=== PATIENT | female | born 1980 | race Caucasian/White ===

== ENCOUNTER 2016-05-19 02:01 | Emergency (ER) | payer MEDICAID ==
[~2016-05-19] VITALS: Ht 154.9 cm; Wt 77.1 kg
[~2016-05-19 02:01] MED LIST: HYDR-1421; PROM25TA5 PO
[2016-05-19 02:46] LABS: Basophils # (auto) 0.1 uL; Basophils % (auto) 0.6 % (0.0-2.0); Eosinophils # (auto) 0.4 uL; Eosinophils % (auto) 3.2 % (0.0-7.0); Hematocrit 46.7 % (36.0-46.0); Hemoglobin 15.8 g/dL (12.2-16.2); Lymphocytes # (auto) 2.7 uL; Lymphocytes % (auto) 22.8 % (10.0-50.0); Mean Corpuscular Hemoglobin 29.3 pg (28.0-32.0); Mean Corpuscular Hgb Conc. 33.8 g/dL (32.0-36.0); Mean Corpuscular Volume 86.7 fL (80.0-100.0); Mean Platelet Volume 8.2 fL (7.4-10.4); Monocytes # (auto) 0.7 uL; Monocytes % (auto) 5.7 % (0.0-12.0); Neutrophils # (auto) 8.1 uL; Neutrophils % (auto) 67.7 % (37.0-80.0); Platelet Count (auto) 424 10^3/uL (140-450); Red Cell Distribution Width 12.6 % (11.6-16.0); White Blood Cell 11.9 10^3/uL (4.4-10.8)
[2016-05-19 03:18] LABS: BUN/Creatinine Ratio 10.3; Bilirubin, Total 0.4 mg/dL (0.2-1.0); Calcium 9.1 mg/dL (8.5-10.1); Magnesium 2.5 mg/dL (1.6-2.6); Potassium 3.6 mmol/L (3.5-5.1); Total Protein 8.6 g/dL (6.4-8.2)
[2016-05-19 07:08] LABS: Urine Bilirubin Negative (Negative); Urine Blood 2+ /uL (Negative); Urine Color Yellow (Yellow); Urine Glucose Normal (Normal); Urine Ketone Negative (Negative); Urine Mucus FEW (None Seen); Urine Nitrite Negative (Negative); Urine RBC 12 /hpf (0 - 4); Urine Squamous Epithelial Cell FEW /hpf (<5); Urine Urobilinogen Normal (Negative); Urine pH 5.5 (5.0-8.0)
[2016-05-19] MEDS ORDERED: ONDANSETRON HCL 4 MG/2 ML VIAL IV ONE (07:30)
[2016-05-19] MEDS ORDERED: MORPHINE SULFATE 4 MG/ML SYRG IV ONE (07:30)
[2016-05-19] MEDS ORDERED: PANTOPRAZOLE SODIUM 40 MG/10 ML VIAL IV ONE (07:45)
[2016-05-19 08:00] VITALS: BP 150/104
== END 2016-05-19 08:54 | disposition home or self-care (01) ==
LOC: ER 02:01 → EDBD 02:01 → ER 08:53
DX: N39.0 Urinary tract infection, site not specified (principal); R06.02 Shortness of breath; Z87.11 Personal history of peptic ulcer disease; R07.9 Chest pain, unspecified
CPT/HCPCS: 36415; 80053; 81001; 82150; 83690; 83735; 84702; 85025; 94761; 96374; 96375; 99284; C9113; G0434; J2270; J2405

== ENCOUNTER 2016-12-10 06:09 | Emergency (ER) | payer MEDICAID ==
[~2016-12-10] VITALS: Ht 154.9 cm; Wt 87.2 kg
[2016-12-10 06:55] LABS: Basophils # (auto) 0.1 uL; Basophils % (auto) 0.4 % (0.0-2.0); Eosinophils # (auto) 0 uL; Eosinophils % (auto) 0.3 % (0.0-7.0); Hemoglobin 14.5 g/dL (12.2-16.2); Lymphocytes # (auto) 1.8 uL; Lymphocytes % (auto) 10.7 % (10.0-50.0); Mean Corpuscular Hemoglobin 30.8 pg (28.0-32.0); Mean Corpuscular Hgb Conc. 33.7 g/dL (32.0-36.0); Mean Corpuscular Volume 91.6 fL (80.0-100.0); Mean Platelet Volume 8.2 fL (6.9-10.8); Monocytes # (auto) 1.4 uL; Monocytes % (auto) 8.3 % (0.0-12.0); Neutrophils # (auto) 13.6 uL; Neutrophils % (auto) 80.3 % (37.0-80.0); Platelet Count (auto) 283 10^3/uL (140-450); Red Cell Distribution Width 13.4 % (11.8-14.3)
[2016-12-10 07:25] LABS: Albumin 3.5 g/dL (3.4-5.0); Anion Gap 12 (5-15); Aspartate Aminotransferase 27 U/L (15-37); BUN/Creatinine Ratio 11.4; Blood Urea Nitrogen 8 mg/dL (7-18); Calcium 8.8 mg/dL (8.5-10.1); Carbon Dioxide 20 mmol/L (21-32); Chloride 106 mmol/L (98-107); GFR African American 121 mL/min; GFR Non-African American 100 mL/min; Glucose 118 mg/dL (74-106); Potassium 3.8 mmol/L (3.5-5.1); Sodium 138 mmol/L (136-145)
[2016-12-10 07:30] LABS: Alkaline Phosphatase 91 U/L (45-117); Bilirubin, Total 0.3 mg/dL (0.2-1.0)
[2016-12-10] MEDS ORDERED: ACETAMINOPHEN 500 MG TAB PO ONE ×2 (08:28→08:45)
[2016-12-10 08:54] LABS: Urine Bilirubin Negative (Negative); Urine Blood 1+ /uL (Negative); Urine Color Yellow (Yellow); Urine Glucose Normal (Normal); Urine Ketone Negative (Negative); Urine Mucus FEW (None Seen); Urine Nitrite Negative (Negative); Urine RBC 39 /hpf (0 - 4); Urine Squamous Epithelial Cell MOD /hpf (<5); Urine Urobilinogen Normal (Negative); Urine pH 5.5 (5.0-8.0)
[2016-12-10] MEDS ORDERED: SODIUM CHLORIDE 0.9% 1,000 ML IV ONE (09:54)
[2016-12-10] MEDS ORDERED: METOCLOPRAMIDE HCL 5MG/ml INJ 2ml VIAL IV ONE (10:00)
[2016-12-10] MEDS ORDERED: cefTRIAXone 1GM/50ML D5W 50 ML IV ONE (10:00)
[2016-12-10] MEDS ORDERED: KETOROLAC TROMETH 30 MG/ML 1ML VIAL IV ONE (10:00)
[2016-12-10 12:40] VITALS: BP 134/48
== END 2016-12-10 13:29 | disposition home or self-care (01) ==
LOC: ER 06:13
DX: N39.0 Urinary tract infection, site not specified (principal); J06.9 Acute upper respiratory infection, unspecified; I10 Essential (primary) hypertension; Z87.442 Personal history of urinary calculi; Z98.51 Tubal ligation status
CPT/HCPCS: 36415; 71020; 80053; 80307; 81001; 83735; 84443; 84484; 84702; 85025; 93005; 94761; 96365; 96375; 99285; J0696; J1885; J2765

== ENCOUNTER 2020-08-23 19:39 | Emergency (ER) | payer MEDICAID ==
[~2020-08-23] VITALS: Ht 154.9 cm; Wt 81.6 kg
[2020-08-23 21:43] LABS: Alcohol, Urine < 3.0 mg/dL (0-10); Amphetamine Screen, Urine NEGATIVE (NEGATIVE); Barbiturate Scree,Urine NEGATIVE (NEGATIVE); Benzodiazephine Screen, Urine NEGATIVE (NEGATIVE); Cannabinoid Screen, Urine POSITIVE (NEGATIVE); Cocaine Screen, Urine NEGATIVE (NEGATIVE); Opiate Scree,Urine NEGATIVE (NEGATIVE); Phencyclidine Screen, Urine NEGATIVE (NEGATIVE)
[2020-08-23 21:50] VITALS: BP 134/72
== END 2020-08-23 21:20 | disposition home or self-care (01) ==
LOC: ER 19:39
DX: R51.9 Headache, unspecified (principal); F41.9 Anxiety disorder, unspecified; R41.82 Altered mental status, unspecified; F12.10 Cannabis abuse, uncomplicated; Z98.51 Tubal ligation status
CPT/HCPCS: 70450; 80307

== ENCOUNTER 2021-11-06 03:16 | Emergency (ER) | payer MEDICAID | END 2021-11-06 03:53 | disposition left against medical advice (07) | LOC: ER 03:16 → EDBD 03:16 → ER 03:53 | DX: I10 Essential (primary) hypertension (principal); Z79.899 Other long term (current) drug therapy | CPT/HCPCS: 93005 ==

== ENCOUNTER 2024-10-25 06:51 | Emergency (ER) | payer MEDICAID ==
[~2024-10-25] VITALS: Ht 154.9 cm; Wt 100.0 kg
[~2024-10-25 06:51] MED LIST changes: +PROM25TA10 PO; -PROM25TA5 PO
--- NOTE | 2024-10-25 07:20 | ED.PDOC ---
History of Present Illness(SKN HPI Comments A 44 YEAR OLD FEMALE BIB SPOUSE, PRESENTS TO THE ED WITH COMPLAINT OF A PAINFUL ERYTHEMATOUS AND EDEMATOUS ABSCESS ON THE PLANTAR ASPECT ON THE LEFT FOOT, LOCATED TOWARDS THE DISTAL METATARSAL PAD. ONSET DEVELOPMENT OF THE WOUND OCCURRED 4-5 DAYS AGO. IT IS UNCERTAIN OF CAUSE, WITH THE PATIENT SPECULATING AN INSECT BITE, WHILE THE SPOUSE SPECULATES A PUNCTURE WOUND FROM GLASS. PATIENT IS UNABLE TO BEAR WEIGHT TO FOOT AND PRESENTS IN A WHEELCHAIR. SHE DENIES ANY WOUND DRAINAGE OR RED STREAKING UP THE LEG. PATIENT DENIES FEVER, CHILLS, SHORTNESS OF BREATH, CHEST PAIN, ABDOMINAL PAIN, NAUSEA, VOMITING, HEADACHE, OR OTHER COMPLAINTS. NO OTHER SYMPTOMS OR MODIFYING FACTORS AT THIS TIME. PATIENT IS ALERT, ORIENTED X 4, AND HAS STEADY GAIT. Chief Complaint: Lower Extremity Time Seen by MD: 07:04 Primary Care Provider: RUFINO History of Present Illness: Nurses Notes, Medications, Allergies Allergies: Coded Allergies: NO KNOWN ALLERGIES (Unverified , 09/19/10) Home Meds Reported Medications Promethazine Hcl (Promethazine Hcl) 25 Mg Tab, 12.5 TAB PO Q8HR 02/08/16 Hydrocodone-Acetaminophen (Vicodin) 1 Tab Tab 11/10/10 Information Source: Patient, Spouse Mode of Arrival: Wheelchair Severity: Moderate Timing: Days (4-5) Duration: Since onset Location: Foot Object: Needle Condition of Object: Dirty Wound Type: Abscess Tetanus: UTD, Unknown Associated Signs and Symptoms: Redness, Swelling, Pus, Pain Past Medical History PAST MEDICAL HISTORY: Kidney Stones, Liver, PUD Surgical History: Tubal Ligation CONDITIONER TUMBLER History: No Pertinent CONDITIONER TUMBLER History Family History Family History: Unobtainable Social History Smoker: Cigarettes Alcohol: Occasionally Drugs: Marijuana Lives In: Home Constitutional: reports: others (DROWSY ); denies: chills, diaphoresis, fatigue, fever, malaise, sweats, weakness EENTM: denies: blurred vision, double vision, ear bleeding, ear discharge, ear drainage, ear pain, ear ringing, eye pain, eye redness, hearing loss, mouth pain, mouth swelling, nasal discharge, nose bleeding, nose congestion, nose pain, photophobia, tearing, throat pain, throat swelling, voice changes, others Respiratory: denies: cough, hemoptysis, orthopnea, SOB at rest, shortness of breath, SOB with excertion, stridor, wheezing, others Cardiovascular: denies: chest pain, dizzy spells, diaphoresis, Dyspnea on exertion, edema, irregular heart beat, left arm pain, lightheadedness, palpitations, PND, syncope, others Gastrointestinal: denies: abdomen distended, abdominal pain, blood streaked bowels, constipated, diarrhea, dysphagia, difficulty swallowing, hematemesis, melena, nausea, poor appetite, poor fluid intake, rectal bleeding, rectal pain, vomiting, others Genitourinary: denies: abnormal vagina bleeding, burning, dyspareunia, dysuria, flank pain, frequency, hematuria, incontinence, pain, , vagina discharge, urgency, others Neurological: denies: dizziness, fainting, headache, left sided numbness, left sided weakness, numbness, paresthesia, pre-existing deficit, right sided numbness, right sided weakness, seizure, speech problems, tingling, tremors, weakness, others Musculoskeletal: denies: back pain, gout, joint pain, joint swelling, muscle pain, muscle stiffness, neck pain, others Integumetry: reports: lesions, lumps, wounds; denies: bruises, change in color, change in hair/nails, dryness, laceration, rash, others Allergic/Immunocompromised: denies: Difficulty Healing, Frequent Infections, Hives, Itching, others Hematologic/Lymphatic: denies: anemia, blood clots, easy bleeding, easy bruising, swollen glands, others Endocrine: denies: excessive hunger, excessive sweating, excessive thirst, excessive urination, flushing, intolerance to cold, intolerance to heat, unexplained weight gain, unexplained weight loss, others Psychiatric: denies: anxiety, bipolar disorder, depression, hopeless, panic disorder, schizophrenia, sleepless, suicidal, others All Other Systems: Reviewed and Negative Physical Exam General Appearance: No Apparent Distress, Normal HEENT: Normal ENT Inspection, PERRL/EOMI, Pharynx Normal, TMs Normal Neck: Full Range of Motion, Non-Tender, Normal, Normal Inspection Respiratory: Chest Non-Tender, Lungs Clear, No Accessory Muscle Use, No Respiratory Distress, Normal Breath Sounds Cardiovascular: No Edema, No JVD, No Murmur, No Gallop, Normal Peripheral Pulses, Regular Rate/Rhythm Breast Exam: Deferred Gastrointestinal: No Organomegaly, Non Tender, No Pulsatile Mass, Normal Bowel Sounds, Soft Genitalia: Deferred Pelvic: Deferred Rectal: Deferred Extremities: Decreased range of motion, No calf tenderness, Normal capillary refill, No pedal edema, Swelling (AND ABSCESS ON LEFT PLANTAR FOOT. ), Tender (AND SWELLING WITH ABSCESS WOUND ON LEFT PLANTAR FOOT, NO BONY TENDERNESS AND DEFORMITY. ), Other (NO REDNESS AND SWELLING ON LEFT LOWER LEG, NO DVT SIGNS. ) Musculoskeletal : Apperance: Normal Neurologic: Alert, diesel engine operator II-XII nml as Tested, No Motor Deficits, Normal Affect, Normal Mood, No Sensory Deficits Cerebellar Function: Normal Reflexes: Normal Skin: Dry, Warm, Wounds (A LARGE BULLOUS ABSCESS WITH LOCALIZED REDNESS AND SWELLING ON LEFT PLANTAR FOOT AND DORSAL FOOT. ) Peripheral Pulses: 2+ carotid (R), 2+ carotid (L), 2+ dorsalis pedis (R), 2+ dorsalis pedis (L) Lymphatic: No Adenopathy Was a procedure done? Was a procedure done?: Yes Sedation Sedation?: No Incision and Drainage Incision and Drainage: Abscess Location LEFT PLANTAR FOOT Anesthetic: Lidocaine Preparation: Betadine, Saline, Wound cleaner wall Incision and Wound: Pus, Seroma, Amount, Irrigated Informed consent obtained: No Risks/benefits/alt described: Yes Notes LEFT PLANTAR FOOT DEBRIDED AND LARGE SKIN REMOVED AND WRAPPED. Images 1 - Differential Diagnosis (INTG) Differential Diagnosis: Insect Envenomation Differential Diagnosis: Abscess Abscess: Abscess, Bacteremia Differential Diagnosis: Puncture Wound X-Ray, Labs, Meds, VS Vital Signs Date Time Temp Pulse Resp B/P (MAP) Pulse Ox O2 Delivery O2 Flow Rate FiO2 10/25/24 08:07 188/93 10/25/24 07:51 98.4 97 20 188/93 (124) 97 98.4 10/25/24 06:53 98.8 112 16 200/102 99 98.8 190/107 Lab Test 10/25/24 07:49 Range/Units White Blood Count 24.4 H 4.4-10.8 10^3/uL Red Blood Count 5.04 4.0-5.20 10^6/uL Hemoglobin 12.9 12.2-16.2 g/dL Hematocrit 39.0 36.0-46.0 % Mean Corpuscular Volume 77.4 L 80.0-100.0 fL Mean Corpuscular Hemoglobin 25.5 L 28.0-32.0 pg Mean Corpuscular Hemoglobin Concent 33.0 32.0-36.0 g/dL Red Cell Distribution Width 17.0 H 11.8-14.3 % Platelet Count 460 H 140-450 10^3/uL Mean Platelet Volume 7.7 6.9-10.8 fL Neutrophils (%) (Auto) 83.1 H 37.0-80.0 % Lymphocytes (%) (Auto) 7.8 L 10.0-50.0 % Monocytes (%) (Auto) 8.6 0.0-12.0 % Eosinophils (%) (Auto) 0.1 0.0-7.0 % Basophils (%) (Auto) 0.4 0.0-2.0 % Neutrophils # (Auto) 20.3 H 1.6-8.6 10 ^3/uL Lymphocytes # (Auto) 1.9 0.4-5.4 10 ^3/uL Monocytes # (Auto) 2.1 H 0-1.3 10 ^3/uL Eosinophils # (Auto) 0 0-0.8 10 ^3/uL Basophils # (Auto) 0.1 0-0.2 10 ^3/uL Nucleated Red Blood Cells 0.1 % Sodium Level 134 L 136-145 mmol/L Potassium Level 3.4 L 3.5-5.1 mmol/L Chloride Level 102 98-107 mmol/L Carbon Dioxide Level 25 20-31 mmol/L Anion Gap 7 5-15 Blood Urea Nitrogen 11 9-23 mg/dL Creatinine 0.89 0.550-1.02 mg/dL Glomerular Filtration Rate Calc 81 >90 mL/min BUN/Creatinine Ratio 12.4 10.0-20.0 Serum Glucose 90 74-106 mg/dL Lactic Acid Level 1.5 0.4-2.0 mmol/L Calcium Level 9.1 8.7-10.4 mg/dL Current Medications Medications (Trade) Dose Ordered Sig/Wanda Route Start Time Stop Time Status Last Admin Clonidine HCl (Catapres Tablet) 0.2 mg ONCE ONCE PO 10/25/24 07:45 10/25/24 07:53 DC 10/25/24 08:07 PATIENT: VAISHALI THOMPSON ACCT: [id number] UNIT: [id number] : 1980 LOC: ER ROOM / BED: / AGE / SEX: 44 / F ADM STATUS: REG ER SERVICE 6 ORDERING PHYSICIAN: KANU COX PROCEDURE(s): LFOOT - L FOOT 3 VIEW XRAY REASON: LARGE BLISTER ON PLANTAR FOOT,POSSIBLE STEPPED ON THE GLASS ORDER NUMBER(s): [id number], ACCESSION NUMBER(s): [id number] CLINICAL INDICATION: LARGE BLISTER ON PLANTAR FOOT,POSSIBLE STEPPED ON THE GLASS TECHNIQUE: 3 radiographic views of the left foot were obtained. Comparison: None FINDINGS/IMPRESSION: There is no evidence of acute fracture or dislocation. The visualized joint space is well maintained. The alignment is anatomical. There is no radiopaque foreign body. ATED BY: HATTIE CASAS MD DICTATED DATE/TIME: 10/25/24824 SIGNED BY: HATTIE CASAS MD SIGNED DATE/TIME: 10/25/24824 CC: X-Ray, Labs, Meds, VS Comment EXTERNAL MEDICAL RECORDS REVIEWED: [NONE] INDEPENDENT HISTORIANS: [NONE] SOCIAL DETERMINANTS OF HEALTH: [NONE] LABS ORDERED: BLOOD CULTURE, WOUND CULTURE, DRUG SCREEN, LACTIC ACID, BMP, CBC REVIEWED AND INTERPRETED RESULTS: NONE IMAGING ORDERED: L FOOT X RAY TREATMENTS ORDERED: ABSCESS I & D, ROCEPHIN 1GM IVPB AND CLINDAMYCIN 900MG IVPB AND TORADOL 30MG IVP, CLONIDINE 0.2MG PO PROCEDURES PERFORMED: INCISION AND DRAINAGE PROCEDURE OUTCOME: PATIENT'S BLISTER WAS OPENED/POPPED AND SKIN WAS REMOVED. PATIENT'S BLISTER WOUND WAS THEN CLEANED USING NORMAL SALINE AND THEN WRAPPED WITH STERILE GAUZE. PATIENT TOLERATED WELL. CRITICAL CARE TIME: NONE I HAVE DISCUSSED THE PATIENT WITH THE ATTENDING PHYSICIAN, SHE AGREES WITH THE PATIENT'S PLAN OF CARE AND DISPOSITION. BASED ON HISTORY OF PRESENT ILLNESS, PHYSICAL EXAM, AND COMBINED ELEVATED WBC OF 24.4, PATIENT WILL BE ADMITTED FOR HIGHER LEVEL OF CARE. SHARED DECISION MAKING: DISCUSSED WITH PATIENT THAT THEIR WORKUP NEEDS HIGHER LEVEL OF CARE. PATIENT VERBALIZES UNDERSTANDING. PATIENT FEELS COMFORTABLE BEING ADMITTED FOR FURTHER WORKUP AND TREATMENT. ALL QUESTIONS ADDRESSED AT TIME OF ASSESSMENT. 9:40 CALLED PATIENT MULTIPLE TIMES NO ANSWER FOR TREATMENT AND ADMISSION BUT DID NOT ANSWER. PATIENT ELOPED FROM THE ED Time of 1ST Reevaluation: 07:50 Reevaluation 1ST: Unchanged Time of 2ND Reevaluation: 09:34 Reevaluation 2ND: Unchanged Patient Education/Counseling: Diagnosis, Treatment Family Education/Counseling: Diagnosis, Treatment SEPSIS Sepsis Screen Date sepsis recognized/suspect: Oct 25, 2024 Time Sepsis recognized/suspect: 652 Recent Procedure: No On Antibiotic Therapy: No Respiratory Rate >20: No Heart Rate >90: Yes Temp<36 C (96.8 F) or >38.3 C: No SBP <90 or MAP <65 mmHG: No New Acute Mental Status Change: No Is the patient on CPAP, BIPAP,: No Physician Orders Wound Culture W/ Gs (10/25/24 07:07) Blood Culture (10/25/24 07:07) Urinalysis (10/25/24 07:07) Drug Screen (10/25/24 07:07) L Foot 3 View Xray (10/25/24 07:07) 4X4 (10/25/24 07:14) Disposable Chux (10/25/24 07:14) Lac Tray (10/25/24 07:14) Heplock Iv (10/25/24 ) Clonidine Hcl Tablet (Catapres Tablet) (10/25/24 07:45) Vital Signs Date Time Temp Pulse Resp B/P (MAP) Pulse Ox O2 Delivery O2 Flow Rate FiO2 10/25/24 08:07 188/93 10/25/24 07:51 98.4 97 20 188/93 (124) 97 98.4 10/25/24 06:53 98.8 112 16 200/102 99 98.8 190/107 Laboratory Tests Test 10/25/24 07:49 Lactic Acid Level 1.5 mmol/L (0.4-2.0) White Blood Count 24.4 10^3/uL (4.4-10.8) H Medications Medications Dose Ordered Sig/Wanda Route Start Time Stop Time Status Last Admin Dose Admin Clonidine HCl 0.2 mg ONCE ONCE PO 10/25/24 07:45 10/25/24 07:53 DC 10/25/24 08:07 Departure 1 Departure Time of Disposition: 09:34 Impression: Primary Impression: Cellulitis and abscess of foot Additional Impressions: Hypertensive urgency Non compliance w medication regimen Disposition: LEFT AWOL/ELOPED Condition: Serious Critical Care Note Critical Care Time?: No Stability Stability form required: No Unstable for transfer: Requires medication, ED Physician Assesment, Possible rapid decline I personally scribed for BROOKE,YINXIA PA ([email or web address]) on 10/25/24 at 07:20. Electronically submitted by Madeleine Suggs ([facility]). I personally scribed for BROOKE,YINXIA PA ([email or web address]) on 10/25/24 at 07:21. Electronically submitted by Madeleine Sugsg ([facility]). I personally scribed for BROOKE,YINXIA PA ([email or web address]) on 10/25/24 at 07:22. Electronically submitted by Madeleine Suggs ([facility]). I personally scribed for BROOKE,YINXIA PA ([email or web address]) on 10/25/24 at 07:44. Electronically submitted by Madeleine Suggs ([facility]). I personally scribed for BROOKE,YINXIA PA ([email or web address]) on 10/25/24 at 07:45. Electronically submitted by Madeleine Suggs ([facility]). I personally scribed for BROOKE,YINXIA PA ([email or web address]) on 10/25/24 at 07:52. Electronically submitted by Madeleine Suggs ([facility]). I personally scribed for BROOKE,YINXIA PA ([email or web address]) on 10/25/24 at 07:55. Electronically submitted by Madeleine Suggs ([facility]). I personally scribed for BROOKE,YINXIA PA ([email or web address]) on 10/25/24 at 07:59. Electronically submitted by Madeleine Suggs ([facility]). I personally scribed for BROOKE,YINXIA PA ([email or web address]) on 10/25/24 at 08:31. Electronically submitted by Madeleine Suggs ([facility]). I personally scribed for BROOKE,YINXIA PA ([email or web address]) on 10/25/24 at 08:39. Electronically submitted by Madeleine Suggs ([facility]). BROOKE,YINXIA PA Oct 25, 2024 07:20
[2024-10-25] MEDS: LIDOCAINE 2%HCL (LOCAL ANESTH.) INJ 10ml MDV IJ ONE (07:22)
[2024-10-25] MEDS ORDERED: CLINDAMYCIN 900MG IV 50 ML IV ONE (07:45)
[2024-10-25] MEDS ORDERED: KETOROLAC TROMETH 30 MG/ML 1ML VIAL IV ONE (07:45)
[2024-10-25 07:51] VITALS: BP 188/93; PULSE 97; RESP 20; TEMP 98.4; O2SAT 97
[2024-10-25 08:17] LABS: Hemoglobin 12.9 g/dL (12.2-16.2)
[2024-10-25 08:19] LABS: Hematocrit 39.0 % (36.0-46.0); Mean Corpuscular Hemoglobin 25.5 pg (28.0-32.0); Mean Corpuscular Volume 77.4 fL (80.0-100.0); Nucleated Red Blood Cells % 0.1 %
--- NOTE | 2024-10-25 08:27 | DVH ---
CLINICAL INDICATION: LARGE BLISTER ON PLANTAR FOOT,POSSIBLE STEPPED ON THE GLASS TECHNIQUE: 3 radiographic views of the left foot were obtained. Comparison: None FINDINGS/IMPRESSION: There is no evidence of acute fracture or dislocation. The visualized joint space is well maintained. The alignment is anatomical. There is no radiopaque foreign body.
[2024-10-25 08:28] LABS: Chloride 102 mmol/L (98-107)
[2024-10-25 08:29] LABS: Calcium 9.1 mg/dL (8.7-10.4); Carbon Dioxide 25 mmol/L (20-31)
[2024-10-25 08:32] LABS: Anion Gap 7 (5-15); Potassium 3.4 mmol/L (3.5-5.1); Sodium 134 mmol/L (136-145)
[2024-10-25 08:34] LABS: BUN/Creatinine Ratio 12.4 (10.0-20.0); Blood Urea Nitrogen 11 mg/dL (9-23); Glucose 90 mg/dL (74-106)
== END 2024-10-25 09:37 | disposition left against medical advice (07) ==
LOC: ER 06:51
DX: L02.612 Cutaneous abscess of left foot (principal); M79.672 Pain in left foot; I16.0 Hypertensive urgency; F17.210 Nicotine dependence, cigarettes, uncomplicated; Z87.11 Personal history of peptic ulcer disease; Z87.442 Personal history of urinary calculi; Z91.148 Patient's other noncompliance with medication regimen for other reason; Z98.51 Tubal ligation status; W57.XXXA Bitten or stung by nonvenomous insect and other nonvenomous arthropods, initial encounter; Y93.89 Activity, other specified; Y92.89 Other specified places as the place of occurrence of the external cause; Y99.8 Other external cause status
CPT/HCPCS: 10060; 36415; 73630; 80048; 83605; 85025; 87040; 87077; 87081; 87186; 87205; 99284; J2003

== ENCOUNTER 2024-10-31 14:21 | Inpatient (IN) | payer MEDICAID ==
[~2024-10-31] VITALS: Ht 162.6 cm; Wt 76.5 kg
--- NOTE | 2024-10-31 15:00 | ED.PDOC ---
History of Present Illness(SKN HPI Comments This is a 44 year old female presenting to the ED with chief complaint of left foot wound. Patient reports that she noticed a wound on he bottom of her left foot 2 weeks ago, progressively getting worse over time. Patient relays that the wound has gotten bigger, started draining, and is painful at a 10/10 in pain. Patient denies any numbness, bleeding, or fever at this time. Chief Complaint: Wound Check Time Seen by MD: 14:57 Primary Care Provider: RUFINO History of Present Illness: Nurses Notes, Medications, Allergies Allergies: Coded Allergies: NO KNOWN ALLERGIES (Unverified , 09/19/10) Home Meds Reported Medications Promethazine Hcl (Promethazine Hcl) 25 Mg Tab, 12.5 TAB PO Q8HR 02/08/16 Hydrocodone-Acetaminophen (Vicodin) 1 Tab Tab 11/10/10 Information Source: Patient Mode of Arrival: Wheelchair Severity: Severe Timing: Weeks Duration: Since onset Prehospital treatment: None Location: Foot Occurence: Outdoors Object: Unknown Condition of Object: Contaminated Retained Foreign Body: No Wound Type: Unknown Immunization Status of Animal: NA Tetanus: Unknown Past Medical History PAST MEDICAL HISTORY: Kidney Stones, Liver, PUD Surgical History: , Tubal Ligation MUFFLER HAND History: No Pertinent MUFFLER HAND History Family History Family History: Reviewed,noncontributory to illness Social History Smoker: Other (Vapes) Alcohol: Occasionally Drugs: Marijuana Lives In: Home Constitutional: denies: chills, diaphoresis, fatigue, fever, malaise, sweats, weakness, others EENTM: denies: blurred vision, double vision, ear bleeding, ear discharge, ear drainage, ear pain, ear ringing, eye pain, eye redness, hearing loss, mouth pain, mouth swelling, nasal discharge, nose bleeding, nose congestion, nose pain, photophobia, tearing, throat pain, throat swelling, voice changes, others Respiratory: denies: cough, hemoptysis, orthopnea, SOB at rest, shortness of breath, SOB with excertion, stridor, wheezing, others Cardiovascular: denies: chest pain, dizzy spells, diaphoresis, Dyspnea on exertion, edema, irregular heart beat, left arm pain, lightheadedness, palpitations, PND, syncope, others Gastrointestinal: denies: abdomen distended, abdominal pain, blood streaked bowels, constipated, diarrhea, dysphagia, difficulty swallowing, hematemesis, melena, nausea, poor appetite, poor fluid intake, rectal bleeding, rectal pain, vomiting, others Genitourinary: denies: abnormal vagina bleeding, burning, dyspareunia, dysuria, flank pain, frequency, hematuria, incontinence, pain, , vagina discharge, urgency, others Neurological: denies: dizziness, fainting, headache, left sided numbness, left sided weakness, numbness, paresthesia, pre-existing deficit, right sided numbness, right sided weakness, seizure, speech problems, tingling, tremors, weakness, others Musculoskeletal: denies: back pain, gout, joint pain, joint swelling, muscle pain, muscle stiffness, neck pain, others Integumetry: reports: wounds (Left foot open wound); denies: bruises, change in color, change in hair/nails, dryness, laceration, lesions, lumps, rash, others Allergic/Immunocompromised: denies: Difficulty Healing, Frequent Infections, Hives, Itching, others Hematologic/Lymphatic: denies: anemia, blood clots, easy bleeding, easy bruising, swollen glands, others Endocrine: denies: excessive hunger, excessive sweating, excessive thirst, excessive urination, flushing, intolerance to cold, intolerance to heat, unexplained weight gain, unexplained weight loss, others Psychiatric: denies: anxiety, bipolar disorder, depression, hopeless, panic d isorder, schizophrenia, sleepless, suicidal, others All Other Systems: Reviewed and Negative Physical Exam General Appearance: Moderate Distress HEENT: Normal ENT Inspection, Pharynx Normal, TMs Normal Neck: Full Range of Motion, Non-Tender, Normal, Normal Inspection Respiratory: Chest Non-Tender, Lungs Clear, No Accessory Muscle Use, No Respiratory Distress, Normal Breath Sounds Cardiovascular: No Edema, No JVD, No Murmur, No Gallop, Normal Peripheral Pulses, Regular Rate/Rhythm Breast Exam: Deferred Gastrointestinal: No Organomegaly, Non Tender, No Pulsatile Mass, Normal Bowel Sounds, Soft Genitalia: Deferred Pelvic: Deferred Rectal: Deferred Extremities: No calf tenderness, Normal capillary refill, Normal inspection, Normal range of motion, Non-tender, No pedal edema Musculoskeletal : Apperance: Normal Neurologic: Alert, train electronic technician II-XII nml as Tested, No Motor Deficits, Normal Affect, Normal Mood, No Sensory Deficits Cerebellar Function: Normal Reflexes: Normal Skin: Dry, Normal Color, Warm, Other (Plantar aspect of the left foot is open with redness and drainage) Lymphatic: No Adenopathy Was a procedure done? Was a procedure done?: No Differential Diagnosis (INTG) Differential Diagnosis: Cellulitis, Other (Osteomyelitis) X-Ray, Labs, Meds, VS Vital Signs Date Time Temp Pulse Resp B/P (MAP) Pulse Ox O2 Delivery O2 Flow Rate FiO2 10/31/24 14:22 97.8 91 16 182/110 97 97.8 Lab Test 10/31/24 15:29 Range/Units White Blood Count 12.4 #H 4.4-10.8 10^3/uL Red Blood Count 4.96 4.0-5.20 10^6/uL Hemoglobin 12.7 12.2-16.2 g/dL Hematocrit 38.3 36.0-46.0 % Mean Corpuscular Volume 77.3 L 80.0-100.0 fL Mean Corpuscular Hemoglobin 25.7 L 28.0-32.0 pg Mean Corpuscular Hemoglobin Concent 33.2 32.0-36.0 g/dL Red Cell Distribution Width 16.7 H 11.8-14.3 % Platelet Count 681 H 140-450 10^3/uL Mean Platelet Volume 7.3 6.9-10.8 fL Neutrophils (%) (Auto) 70.5 37.0-80.0 % Lymphocytes (%) (Auto) 18.2 10.0-50.0 % Monocytes (%) (Auto) 8.0 0.0-12.0 % Eosinophils (%) (Auto) 2.4 0.0-7.0 % Basophils (%) (Auto) 0.9 0.0-2.0 % Neutrophils # (Auto) 8.7 H 1.6-8.6 10 ^3/uL Lymphocytes # (Auto) 2.3 0.4-5.4 10 ^3/uL Monocytes # (Auto) 1.0 0-1.3 10 ^3/uL Eosinophils # (Auto) 0.3 0-0.8 10 ^3/uL Basophils # (Auto) 0.1 0-0.2 10 ^3/uL Nucleated Red Blood Cells 0.0 % Erythrocyte Sedimentation Rate 48 H 0-20 mm/hr Sodium Level 137 136-145 mmol/L Potassium Level 4.2 3.5-5.1 mmol/L Chloride Level 101 98-107 mmol/L Carbon Dioxide Level 29 20-31 mmol/L Anion Gap 7 5-15 Blood Urea Nitrogen 7 L 9-23 mg/dL Creatinine 0.80 0.550-1.02 mg/dL Glomerular Filtration Rate Calc 93 >90 mL/min BUN/Creatinine Ratio 8.8 L 10.0-20.0 Serum Glucose 83 74-106 mg/dL Calcium Level 9.3 8.7-10.4 mg/dL The CBC shows an elevated white blood cell count of 12.4 The rest of the CBC is within normal limits The chemistry panel is within normal limits The sed rate is elevated at 48 The CAT scan of the left foot shows: IMPRESSION: 1. No CT evidence of osteomyelitis. 2. Prominent area of soft tissue ulceration with surrounding phlegmon along the superficial subcutaneous adipose tissues along the plantar aspect of the foot. 3. No underlying drainable fluid collection. P At this time, the patient is being admitted with a diagnosis of cellulitis to the left foot The patient was started on clindamycin IV piggyback The patient understands and agrees with the management. Images Reviewed?: Images reviewed and evaluated by me Time of 1ST Reevaluation: 17:15 Reevaluation 1ST: Unchanged Patient Education/Counseling: Diagnosis, Treatment, Prognosis Family Education/Counseling: No Family Present SEPSIS Sepsis Screen Date sepsis recognized/suspect: Oct 31, 2024 Time Sepsis recognized/suspect: 2 Recent Procedure: No On Antibiotic Therapy: No Respiratory Rate >20: No Heart Rate >90: No Temp<36 C (96.8 F) or >38.3 C: No SBP <90 or MAP <65 mmHG: No New Acute Mental Status Change: No Is the patient on CPAP, BIPAP,: No Physician Orders Urinalysis (10/31/24 14:55) Heplock Iv (10/31/24 14:55) Ct L Foot Wo Contrast (10/31/24 14:55) Wound Culture W/ Gs (10/31/24 14:55) Vital Signs Date Time Temp Pulse Resp B/P (MAP) Pulse Ox O2 Delivery O2 Flow Rate FiO2 10/31/24 14:22 97.8 91 16 182/110 97 97.8 Laboratory Tests Test 10/31/24 15:29 White Blood Count 12.4 10^3/uL (4.4-10.8) #H Departure 1 Departure Time of Disposition: 17:15 Impression: Primary Impression: Cellulitis of left foot Additional Impression: Leukocytosis Qualified Codes: D72.829 - Elevated white blood cell count, unspecified Disposition: ADMITTED INPATIENT Admit to: Med Surg Condition: Fair Critical Care Note Critical Care Time?: No Stability Stability form required: Yes Unstable for transfer: ED Physician Assesment (Clinical assesment) Heart Score Heart Score: Heart Score Response (Comments) Value History N/A 0 EKG N/A 0 Age N/A 0 Risk Factors N/A 0 Troponin N/A 0 Total 0 I personally scribed for ARLINE TOLLIVER MD ([email or web address]) on 10/31/24 at 15:00. Electronically submitted by Nolan James ([email or web address]). ARLINE TOLLIVER MD Oct 31, 2024 15:00
[2024-10-31 15:59] LABS: Hematocrit 38.3 % (36.0-46.0); Hemoglobin 12.7 g/dL (12.2-16.2); Mean Corpuscular Hemoglobin 25.7 pg (28.0-32.0); Mean Corpuscular Volume 77.3 fL (80.0-100.0); Nucleated Red Blood Cells % 0.0 %
--- NOTE | 2024-10-31 15:59 | DVH ---
EXAM: CT CT L FOOT WO CONTRAST INDICATION: infection TECHNIQUE: Axial images of left foot without contrast have been obtained along with coronal and sagit salbador reformatted images. All CT scans at this facility use dose modulation, iterative reconstruction, and/or weight based dosing when appropriate to reduce radiation dose to as low as reasonably achievab le. COMPARISON: XY L FOOT 3 VIEW XRAY on DOS: 10/25/24 FINDINGS: BONES: No CT evidence of an acute fracture or aggressive osseous lesion. no abnormal periosteal react ion. No abnormal osseous erosion, lucency, sclerosis to suggest osteomyelitis. No soft tissue emphyse ma. MUSCLES: No abnormal attenuation. JOINT SPACES: No joint effusion. TENDONS/LIGAMENTS: Intact. OTHER: Prominent area of soft tissue ulceration with surrounding phlegmon along the superficial subcu taneous adipose tissues along the plantar aspect of the foot. No underlying drainable fluid collectio n. IMPRESSION: 1. No CT evidence of osteomyelitis. 2. Prominent area of soft tissue ulceration with surrounding phlegmon along the superficial subcutane ous adipose tissues along the plantar aspect of the foot. 3. No underlying drainable fluid collection.
[2024-10-31 16:09] LABS: Chloride 101 mmol/L (98-107); Potassium 4.2 mmol/L (3.5-5.1); Sodium 137 mmol/L (136-145)
[2024-10-31 16:10] LABS: Anion Gap 7 (5-15); Carbon Dioxide 29 mmol/L (20-31)
[2024-10-31 16:11] LABS: Calcium 9.3 mg/dL (8.7-10.4)
[2024-10-31 16:15] LABS: BUN/Creatinine Ratio 8.8 (10.0-20.0); Glucose 83 mg/dL (74-106)
[2024-10-31 16:16] LABS: Blood Urea Nitrogen 7 mg/dL (9-23)
[2024-11-01] VITALS (8 sets, daily range): BP systolic 145–165; BP diastolic 80–98; PULSE 59–74; RESP 16–20; TEMP 97.5–98.4; O2SAT 95–100
[2024-11-01] MEDS ORDERED: ONDANSETRON HCL 4 MG/2 ML VIAL IV PRN (01:00)
[2024-11-01] MEDS ORDERED: HYDROcodone-ACET 5/325MG TAB PO PRN (01:00)
[2024-11-01] MEDS ORDERED: NITROGLYCERIN 0.4 MG SL TAB SL PRN (01:00)
[2024-11-01] MEDS ORDERED: VANCOMYCIN PER PHARMACY 0 MG IV SCH (01:00)
[2024-11-01] MEDS ORDERED: DOCUSATE SOD 100 MG CAP PO PRN (01:00)
[2024-11-01] MEDS ORDERED: VANCOMYCIN 1GM/250ML KIT 250 ML IV ONE (01:00)
[2024-11-01] MEDS ORDERED: MORPHINE SULFATE INJ 2 MG/ml SYRG IV PRN ×2 (01:00)
--- NOTE | 2024-11-01 01:03 | DVHHP2 ---
History of Present Illness Reason for Visit: Cellulitis of left foot History of Present Illness The patient is a 44-year-old female with past medical history of PUD, kidney stones, and liver disease who presented to [facility] ED with complaint of left foot nonhealing wound. Patient reports that she noticed a woun d on he bottom of her left foot 2 weeks ago, progressively getting worse over time. Patient relays that the wound has gotten bigger, started draining, and is painful rating 10/10 numeric scale. Patient was seen and evaluated in the ED, laboratory data shows WBC 12.4, platelets 681, ESR 48, sodium 137, potassium 4.2, BUN 7, creatinine 0.80, GFR 93, glucose 83, calcium 9.3, blood pressure 148/102, heart rate 86, temperature 98.1 F, O2 saturation 98% on room air. Left foot CT showed no evidence of osteomyelitis. Patient was started on IV antibiotic regimen vancomycin, given IV morphine sulfate, please see medication orders section in the computer. On my assessment, patient denied chest pain, no headache, no dizziness, no shortness of breaths, no nausea, no vomiting, no fever, no chills. Patient was admitted for further evaluation and medical management. Past Medical History Kidney Stones, Liver, PUD Past Surgical History , Tubal Ligation Family History Reviewed, noncontributory to the management of this case. Past Social History Patient lives at home, smokes vapes, drinks alcohol occasionally, uses marijuana. Review of Systems Constitutional: Yes: Weakness; No: Fever, Chills, Sweats, Malaise, Other Eyes: No: Pain, Vision change, Conjunctivae inflammation, Eyelid inflammation, Other, Redness ENT: No: Ear pain, Ear discharge, Nose pain, Nose discharge, Nose congestion, Mouth pain, Mouth swelling, Throat pain, Throat swelling, Other Respiratory: No: Cough, Dry, Shortness of breath, SOB with excertion, Wheezing, Hemoptysis, Pleuritic Pain, Sputum, Wheezing, Other Cardiovascular: No: Chest Pain, Palpitations, Orthopnea, Paroxysmal Noc. Dyspnea, Edema, Lt Headedness, Other Gastrointestinal: No: Nausea, Vomiting, Abdominal Pain, Diarrhea, Constipation, Melena, Hematochezia, Other Genitourinary: No Dysuria, No Frequency, No Incontinence, No Hematuria, No Retention, No Other Musculoskeletal: other (Left foot pain); No: neck pain, shoulder pain, arm pain, back pain, hand pain, leg pain, foot pain Skin: Other (Left foot open wound); No: Rash, Lesions, Jaundice, Bruising Neurological: No: Weakness, Numbness, Incoordination, Change in speech, Confusion, Seizures, Other Allergies: Coded Allergies: NO KNOWN ALLERGIES (Unverified , 09/19/10) Exam Vital Signs Vital Signs Date Time Temp Pulse Resp B/P (MAP) Pulse Ox O2 Delivery O2 Flow Rate FiO2 10/31/24 23:54 98.1 86 17 148/102 (117) 98 98.1 General Appearance: Alert, Oriented X3, Cooperative, No acute distress HEENT: Atraumatic, PERRLA, EOMI, Mucous membr. moist/pink Respiratory: Normal air movement Cardiovascular: Regular rate, Normal S1, Normal S2, No murmurs Abdominal: Normal bowel sounds, Soft, No tenderness, No hepatospenomegaly, No masses Extremities: No clubbing, No cyanosis, No edema, Normal pulses, Other (Left foot tenderness/swelling) Skin: No rashes, No significant lesion Neuro: Normal speech, Normal tone, Sensation intact, Cranial nerves 3-12 NL, Reflexes 2+, Other (Generalized weakness) Psych/Mental Status: Mental status NL, Mood NL Labs/Xrays Labs Test 10/31/24 15:29 Range/Units White Blood Count 12.4 #H 4.4-10.8 10^3/uL Red Blood Count 4.96 4.0-5.20 10^6/uL Hemoglobin 12.7 12.2-16.2 g/dL Hematocrit 38.3 36.0-46.0 % Mean Corpuscular Volume 77.3 L 80.0-100.0 fL Mean Corpuscular Hemoglobin 25.7 L 28.0-32.0 pg Mean Corpuscular Hemoglobin Concent 33.2 32.0-36.0 g/dL Red Cell Distribution Width 16.7 H 11.8-14.3 % Platelet Count 681 H 140-450 10^3/uL Mean Platelet Volume 7.3 6.9-10.8 fL Neutrophils (%) (Auto) 70.5 37.0-80.0 % Lymphocytes (%) (Auto) 18.2 10.0-50.0 % Monocytes (%) (Auto) 8.0 0.0-12.0 % Eosinophils (%) (Auto) 2.4 0.0-7.0 % Basophils (%) (Auto) 0.9 0.0-2.0 % Neutrophils # (Auto) 8.7 H 1.6-8.6 10 ^3/uL Lymphocytes # (Auto) 2.3 0.4-5.4 10 ^3/uL Monocytes # (Auto) 1.0 0-1.3 10 ^3/uL Eosinophils # (Auto) 0.3 0-0.8 10 ^3/uL Basophils # (Auto) 0.1 0-0.2 10 ^3/uL Nucleated Red Blood Cells 0.0 % Erythrocyte Sedimentation Rate 48 H 0-20 mm/hr Sodium Level 137 136-145 mmol/L Potassium Level 4.2 3.5-5.1 mmol/L Chloride Level 101 98-107 mmol/L Carbon Dioxide Level 29 20-31 mmol/L Anion Gap 7 5-15 Blood Urea Nitrogen 7 L 9-23 mg/dL Creatinine 0.80 0.550-1.02 mg/dL Glomerular Filtration Rate Calc 93 >90 mL/min BUN/Creatinine Ratio 8.8 L 10.0-20.0 Serum Glucose 83 74-106 mg/dL Calcium Level 9.3 8.7-10.4 mg/dL PATIENT: VAISHALI THOMPSON LACCT: [id number] UNIT: [id number] : 1980 LOC: ER ROOM / BED: / AGE / SEX: 44 / F ADM STATUS: REG ER SERVICE 1455 ORDERING PHYSICIAN: ARLINE TOLLIVER MD PROCEDURE(s): LFTCT - CT L FOOT WO CONTRAST REASON: infection ORDER NUMBER(s): [id number], ACCESSION NUMBER(s): [id number] EXAM: CT CT L FOOT WO CONTRAST INDICATION: infection TECHNIQUE: Axial images of left foot without contrast have been obtained along with coronal and sagittal reformatted images. All CT scans at this facility use dose modulation, iterative reconstruction, and/or weight based dosing when appropriate to reduce radiation dose to as low as reasonably achievable. COMPARISON: XY L FOOT 3 VIEW XRAY on DOS: 10/25/24 FINDINGS: BONES: No CT evidence of an acute fracture or aggressive osseous lesion. no abnormal periosteal reaction. No abnormal osseous erosion, lucency, sclerosis to suggest osteomyelitis. No soft tissue emphysema. MUSCLES: No abnormal attenuation. JOINT SPACES: No joint effusion. TENDONS/LIGAMENTS: Intact. OTHER: Prominent area of soft tissue ulceration with surrounding phlegmon along the superficial subcutaneous adipose tissues along the plantar aspect of the foot. No underlying drainable fluid collection. IMPRESSION: 1. No CT evidence of osteomyelitis. 2. Prominent area of soft tissue ulceration with surrounding phlegmon along the superficial subcutaneous adipose tissues along the plantar aspect of the foot. 3. No underlying drainable fluid collection. SEPSIS Sepsis Screen Date sepsis recognized/suspect: Oct 31, 2024 Time Sepsis recognized/suspect: 1421 Recent Procedure: No On Antibiotic Therapy: No Respiratory Rate >20: No Heart Rate >90: No Temp<36 C (96.8 F) or >38.3 C: No SBP <90 or MAP <65 mmHG: No New Acute Mental Status Change: No Is the patient on CPAP, BIPAP,: No Physician Orders Complete Blood Count (11/01/24 04:00) Comprehensive Metabolic Panel (11/01/24 04:00) Vancomycin (11/01/24 01:00) Vancomycin (11/01/24 01:00) *Podiatry Consult Musson(Dvmg) (11/01/24 00:53) Ceftriaxone Ivpb Rocephin (11/01/24 09:00) Ceftriaxone Ivpb Rocephin (11/01/24 01:00) * Wound Consult (11/01/24 ) Enoxaparin Sodium (Lovenox) (11/01/24 01:00) Admit (11/01/24 00:53) Allergies (11/01/24 00:53) Code Status (11/01/24 00:53) 0.9% Ns 1000 Ml (11/01/24 01:00) Oxygen Per Hour (11/01/24 00:53) Hydrocodone-Acet 5/325mg Tab (Rinard 5/32 (11/01/24 01:00) Ondansetron Hcl (Zofran) (11/01/24 01:00) Docusate Sodium Capsule (Colace Capsule) (11/01/24 01:00) Complete Blood Count (11/02/24 04:00) Comprehensive Metabolic Panel (11/02/24 04:00) Cardiac Diet-2gna,Lofat,Lochol (11/01/24 Breakfast) Condition: Serious (11/01/24 00:53) Acetaminophen Tablet (Tylenol Tablet) (11/01/24 01:00) Bedrest With Bathroom Privileg (11/01/24 00:53) Morphine Sulfate Injection (11/01/24 01:00) Sequential Compression Device (11/01/24 ) Nitroglycerin Sublingual (Ntrostat Subli (11/01/24 01:00) Morphine Sulfate Injection (11/01/24 01:00) Notify Of Changes From Base (11/01/24 00:53) Emergency Dysrhythmia Protocol (11/01/24 00:53) Oxygen By Nasal Cannula (11/01/24 00:53) Vital Signs Date Time Temp Pulse Resp B/P (MAP) Pulse Ox O2 Delivery O2 Flow Rate FiO2 10/31/24 23:54 98.1 86 17 148/102 (117) 98 98.1 Laboratory Tests Test 10/31/24 15:29 White Blood Count 12.4 10^3/uL (4.4-10.8) #H Assessment/Plan Assessment/Plan Cellulitis of left foot Thrombocytosis Open wound of left foot Leukocytosis, unspecified Plan 1. Admit to med surge unit 2. Breathing treatment 3. Pain control management 4. IV antibiotic management 5. Management of fluids and electrolytes 6. Consultation for podiatry/wound care 7. Diagnostic test left foot CT 8. DVT prophylaxis-on Lovenox 9. Repeat labs CBC, CMP in a.m. 10. Home medication reviewed and reconciled 11. Continue with current medical management 12. Treatment plan discussed with patient and RN. Patient verbalized understanding. Plan discussed with: Patient, Other (RN) My Orders Orders - AMPARO YANEZ DNP Procedure Category Date Status Time Complete Blood Count LAB 11/01/24 Transmitted 04:00 Comprehensive LAB 11/01/24 Transmitted Metabolic Panel 04:00 Vancomycin PHA 11/01/24 Verified 01:00 Vancomycin PHA 11/01/24 Verified 01:00 *Podiatry Consult CONS 11/01/24 Verified Musson(Dvmg) 00:53 Ceftriaxone Ivpb PHA 11/01/24 Verified Rocephin 09:00 Ceftriaxone Ivpb PHA 11/01/24 Verified Rocephin 01:00 * Wound Consult CONS 11/01/24 Transmitted Enoxaparin Sodium PHA 11/01/24 Verified (Lovenox) 01:00 Admit ADMIT 11/01/24 Verified 00:53 Allergies BEE 11/01/24 Verified 00:53 Code Status CODE 11/01/24 Verified 00:53 0.9% Ns 1000 Ml PHA 11/01/24 Verified 01:00 Oxygen Per Hour RT 11/01/24 Verified 00:53 Hydrocodone-Acet PHA 11/01/24 Verified 5/325mg Tab (Rinard 01:00 Ondansetron Hcl PHA 11/01/24 Verified (Zofran) 01:00 Docusate Sodium PHA 11/01/24 Verified Capsule (Colace 01:00 Complete Blood Count LAB 11/02/24 Verified 04:00 Comprehensive LAB 11/02/24 Verified Metabolic Panel 04:00 Cardiac DIET 11/01/24 Verified Diet-2gna,Lofat,Lochol Breakfast Condition: Serious [facility] 11/01/24 Verified 00:53 Acetaminophen Tablet [facility] 11/01/24 Verified (Tylenol Tablet) 01:00 Bedrest With Bathroom [facility] 11/01/24 Verified Privileg 00:53 Morphine Sulfate [facility] 11/01/24 Verified Injection 01:00 Sequential [facility] 11/01/24 Verified Compression Device Nitroglycerin [facility] 11/01/24 Verified Sublingual (Ntrostat 01:00 Morphine Sulfate [facility] 11/01/24 Verified Injection 01:00 Notify Of Changes [facility] 11/01/24 Verified From Base 00:53 Emergency Dysrhythmia [facility] 11/01/24 Verified Protocol 00:53 Oxygen By Nasal RT 11/01/24 Verified Cannula 00:53 Problem List: (1) Cellulitis of left foot (2) Thrombocytosis (3) Open wound of left foot (4) Leukocytosis, unspecified Date of Service: Nov 01, 2024 Billing Provider: AMPARO YANEZ DNP Common Visit Codes: [id number] INP/OBS CARE (HIGH) AMPARO YANEZ DNP Nov 01, 2024 01:03
[2024-11-01] MEDS: ENOXAPARIN SOD 40 MG/0.4 ML SYRINGE SC ONE (02:13)
[2024-11-01] MEDS: SODIUM CHLORIDE 0.9% 1,000 ML IV SCH (02:13)
[2024-11-01] MEDS: VANCOMYCIN 1.25GM/250ML 250 ML IV ONE (02:14)
[2024-11-01 03:58] LABS: Hematocrit 37.9 % (36.0-46.0); Hemoglobin 12.7 g/dL (12.2-16.2); Mean Corpuscular Hemoglobin 25.9 pg (28.0-32.0); Mean Corpuscular Volume 77.3 fL (80.0-100.0); Nucleated Red Blood Cells % 0.0 %
[2024-11-01 04:12] LABS: Alkaline Phosphatase 104 U/L (46-116); Anion Gap 9 (5-15); BUN/Creatinine Ratio 17.6 (10.0-20.0); Blood Urea Nitrogen 15 mg/dL (9-23); Calcium 9.2 mg/dL (8.7-10.4); Carbon Dioxide 27 mmol/L (20-31); Chloride 102 mmol/L (98-107); Glucose 96 mg/dL (74-106); Potassium 4.0 mmol/L (3.5-5.1); Sodium 138 mmol/L (136-145); Total Protein 7.6 g/dL (5.7-8.2)
[2024-11-01 04:14] LABS: Alanine Aminotransferase < 9 U/L (7-40); Albumin 3.9 g/dL (3.2-4.8); Bilirubin, Total < 0.2 mg/dL (0.2-1.0)
--- NOTE | 2024-11-01 10:08 | DVHPN2 ---
Assessment/Plan Assessment/Plan 44 F with admitted for cellulitis. Pt complained of L foot wound since 2 weeks [employer] worsening over time. On admission she was hypertensive, has leukocytosis, thrombocytosis, normal glucose, elevated ESR. CT no osteo, found plantar ulceration and phlegmon. Started on vanc and ceft. Wound looks infected with necrotic tissue, per patient from insect bite. not taking any meds. used meth and vaping. Physical exam AOx4 disheveled poor oral hygiene CTAB abdomen soft L plantar ulcer with swelling and erythema, dirty wound Assessment and plan L foot ulcer cellulitis hypertension meth use nicotine use c/w ceft vanc follow culture a1c podiatry consult wound care pain management start oral antihypertensives NRT diet reg dvt ppx scd full code Plan discussed with: Patient Date of Service: Nov 01, 2024 Billing Provider: ANTONI CASSIDY MD Common Visit Codes: [id number] INP/OBS CARE(HIGH) ANTONI CASSIDY MD Nov 01, 2024 10:08
[2024-11-01] MEDS: ACETAMINOPHEN 325 MG TAB PO PRN (11:06)
--- NOTE | 2024-11-01 12:31 | DVHCONRES ---
Date Seen: Nov 01, 2024 Reason for Consultation Foot wounds History of Present Illness The patient is a 44-year-old female with past medical history of PUD, kidney stones, and liver disease who presented to [facility] ED with complaint of left foot nonhealing wound. Patient reports that she noticed a wo und on he bottom of her left foot 2 weeks ago, progressively getting worse over time. Patient relays that the wound has gotten bigger, started draining, and is painful rating 10/10 numeric scale. Patient was seen and evaluated in the ED, laboratory data shows WBC 12.4, platelets 681, ESR 48, sodium 137, potassium 4.2, BUN 7, creatinine 0.80, GFR 93, glucose 83, calcium 9.3, blood pressure 148/102, heart rate 86, temperature 98.1 F, O2 saturation 98% on room air. Left foot CT showed no evidence of osteomyelitis. Patient was started on IV antibiotic regimen vancomycin, given IV morphine sulfate, please see medication orders section in the computer. On my assessment, patient denied chest pain, no headache, no dizziness, no shortness of breaths, no nausea, no vomiting, no fever, no chills. Patient was admitted for further evaluation and medical management. Past Medical History See H&P Past Surgical History See H&P Family History: Patient reports no known family medical history. Allergies: Coded Allergies: NO KNOWN ALLERGIES (Unverified , 09/19/10) Home Meds Reported Medications Promethazine Hcl (Promethazine Hcl) 25 Mg Tab, 12.5 TAB PO Q8HR 02/08/16 Hydrocodone-Acetaminophen (Vicodin) 1 Tab Tab 11/10/10 Current Medications Current Medications Medications (Trade) Dose Ordered Sig/Wanda Route PRN Reason Start Time Stop Time Status Last Admin Vancomycin HCl 0 ml @ 0 mls/hr UD IV 11/01/24 01:00 Ceftriaxone Sodium 50 ml @ 100 mls/hr DAILY@09 IV 11/02/24 09:00 Sodium Chloride 1,000 ml @ 60 mls/hr [id number] IV 11/01/24 01:00 11/01/24 10:10 DC 11/01/24 08:13 Acetaminophen/ Hydrocodone Bitart ([place] 5/325MG Tab) 1 tab Q4HP PRN PO MODERATE PAIN (4-6 PAIN SCALE) 11/01/24 01:00 11/01/24 10:10 DC Ondansetron HCl (Zofran) 4 mg Q4HP PRN IV NAUSEA / VOMITING 11/01/24 01:00 11/01/24 10:10 DC Docusate Sodium (Colace Capsule) 100 mg BIDPRN PRN PO FOR CONSTIPATION 11/01/24 01:00 11/01/24 10:10 DC Acetaminophen (Tylenol Tablet) 650 mg Q6HP PRN PO PAIN SCALE 1-3 OR TEMP>100.4 11/01/24 01:00 11/01/24 11:06 Morphine Sulfate 2 mg Q4HPRN PRN IV SEVERE PAIN (7-10 PAIN SCALE) 11/01/24 01:00 11/01/24 10:10 DC Nitroglycerin (Ntrostat Sublingual) 0.4 mg Q5MINP PRN SL FOR CHEST PAIN 11/01/24 01:00 11/01/24 10:10 DC Morphine Sulfate 2 mg Q30M PRN IV FOR CHEST PAIN 11/01/24 01:00 11/01/24 10:10 DC Vancomycin HCl 100 ml @ 100 mls/hr Q12H IV 11/01/24 14:00 Ketorolac Tromethamine (Toradol Injection) 30 mg Q6HPRN PRN IV SEVERE PAIN (7-10 PAIN SCALE) 11/01/24 11:30 11/06/24 11:29 Tramadol HCl (Ultram) 50 mg Q6HP PRN PO BREAKTHROUGH PAIN 11/01/24 11:30 Nicotine (Nicoderm 7MG/ 24HR) 1 patch DAILY TD 11/02/24 10:00 Vital Signs Vital Signs Date Time Temp Pulse Resp B/P (MAP) Pulse Ox O2 Delivery O2 Flow Rate FiO2 11/01/24 09:00 97.7 71 16 157/87 (110) 97 97.7 11/01/24 06:00 Room Air* 0 21 Physical Exam Dermatological: Skin is dry with mild erythema and some maceration around the wound site No gross deformities noted Mild non-pitting edema present bilaterally Left plantar forefoot wound with debris, surrounding erythema Vascular: Dorsalis pedis and posterior tibial pulses are 1+ bilaterally Capillary refill is under 2 seconds Skin temperature is warm bilaterally Neurologic: Protective sensation is absent on the plantar forefoot bilaterally Monofilament testing reveals decreased sensation in multiple plantar sites Musculoskeletal: Range of motion at the ankle and MTP joints is within normal limits. Strength is 5/5 in all tested muscle groups. Gait is antalgic due to offloading of the affected limb. Labs/Diagnostic Data Labs Test 11/01/24 03:28 10/31/24 15:29 Range/Units White Blood Count 12.8 H 4.4-10.8 10^3/uL Red Blood Count 4.91 4.0-5.20 10^6/uL Hemoglobin 12.7 12.2-16.2 g/dL Hematocrit 37.9 36.0-46.0 % Mean Corpuscular Volume 77.3 L 80.0-100.0 fL Mean Corpuscular Hemoglobin 25.9 L 28.0-32.0 pg Mean Corpuscular Hemoglobin Concent 33.5 32.0-36.0 g/dL Red Cell Distribution Width 16.8 H 11.8-14.3 % Platelet Count 687 H 140-450 10^3/uL Mean Platelet Volume 7.2 6.9-10.8 fL Neutrophils (%) (Auto) 69.7 37.0-80.0 % Lymphocytes (%) (Auto) 19.2 10.0-50.0 % Monocytes (%) (Auto) 7.4 0.0-12.0 % Eosinophils (%) (Auto) 2.6 0.0-7.0 % Basophils (%) (Auto) 1.1 0.0-2.0 % Neutrophils # (Auto) 8.9 H 1.6-8.6 10 ^3/uL Lymphocytes # (Auto) 2.5 0.4-5.4 10 ^3/uL Monocytes # (Auto) 0.9 0-1.3 10 ^3/uL Eosinophils # (Auto) 0.3 0-0.8 10 ^3/uL Basophils # (Auto) 0.1 0-0.2 10 ^3/uL Nucleated Red Blood Cells 0.0 % Sodium Level 138 136-145 mmol/L Potassium Level 4.0 3.5-5.1 mmol/L Chloride Level 102 98-107 mmol/L Carbon Dioxide Level 27 20-31 mmol/L Anion Gap 9 5-15 Blood Urea Nitrogen 15 9-23 mg/dL Creatinine 0.85 0.550-1.02 mg/dL Glomerular Filtration Rate Calc 86 >90 mL/min BUN/Creatinine Ratio 17.6 10.0-20.0 Serum Glucose 96 74-106 mg/dL Hemoglobin A1c 5.4 <5.7 % A1C Calcium Level 9.2 8.7-10.4 mg/dL Total Bilirubin < 0.2 L 0.2-1.0 mg/dL Aspartate Amino Transferase (AST) 12 L 13-40 U/L Alanine Aminotransferase (ALT) < 9 7-40 U/L Alkaline Phosphatase 104 46-116 U/L Total Protein 7.6 5.7-8.2 g/dL Albumin 3.9 3.2-4.8 g/dL Erythrocyte Sedimentation Rate 48 H 0-20 mm/hr Problems(with codes): (1) Upper respiratory infection (2) Hemorrhagic ovarian cyst (3) Fatty liver (4) Hemorrhagic ovarian cyst (5) Hemorrhagic ovarian cyst (6) Hydrosalpinx (7) Acute pharyngitis (8) Gastroenteritis (9) Abdominal pain (10) Kidney stone (11) Abdominal pain of unknown etiology (12) Urinary tract infection (13) Anxiety (14) Head ache (15) Asymptomatic hypertension (16) History of uncontrolled hypertension (17) Bullous lesion (18) Cellulitis and abscess of foot (19) Hypertensive urgency (20) Non compliance w medication regimen (21) Leukocytosis (22) Cellulitis of left foot (23) Thrombocytosis (24) Leukocytosis, unspecified (25) Open wound of left foot Plan/Recommendation ASSESSMENT: Patient is a 44 year old seen on the floor for a worsening ulcer PLAN: - The patients chart was reviewed, clinical findings were discussed with the patient, the etiologies of the conditions were discussed in detail, and a treatment plan was agreed to at this time, with both oral and written instructions provided. - reviewed advanced imaging -recommend we get an MRI of the left foot rule out osteomyelitis - continue IV antibiotics - hold off on surgical intervention until MRI - likely need debridement - dressed with a Betadine-soaked gauze All questions were answered and concerns addressed to the patient's satisfaction. The patient was given the phone number to the clinic and was told how to make contact with the clinic should any concerns or questions arise. Patient understands that if any questions or concerns arise prior to the next appointment, we should be contacted immediately. FOLLOW-UP: Continue to follow while inpatient Plan discussed with: Patient Visit Coding Podiatry Date of Service if different f: Nov 01, 2024 Billing Provider: TRISHA JONAS DPM Podiatry Common Visit Codes: CONSULT ONLY Podiatry Consult Codes: [id number] CONSLTJ NEW/EST HI 80 TRISHA JONAS DPM Nov 01, 2024 12:31
[2024-11-01] MEDS: VANCOMYCIN 750MG KIT 100 ML IV SCH (15:22)
[2024-11-01] MEDS: NICOTINE 7MG/24HR TOPICAL PATCH TD ONE (15:22)
--- NOTE | 2024-11-01 15:28 | DVH ---
CLINICAL HISTORY: Rule out osteomyelitis. TECHNIQUE: Multi sequence multi planar MRI images of the left foot were obtained without contrast. COMPARISON: CT CT L FOOT WO CONTRAST on DOS: 10/31/24, XY L FOOT 3 VIEW XRAY on DOS: 10/25/24 FINDINGS: There is a wound at the plantar aspect of the forefoot near the level of the distal 1st th rough 3rd metatarsals. There is prominent adjacent subcutaneous edema and ill-defined fluid, likely cellulitis and possible phlegmon. Limited evaluation for abscess on noncontrast enhanced MRI. Absce ss is not excluded. No marrow signal abnormality in the adjacent osseous structures to suggest osteom yelitis. There is also diffuse subcutaneous edema throughout the left foot. Intramuscular edema is se en in the intrinsic muscles of the forefoot, which is nonspecific, but may be seen with myositis or a cute/ subacute denervation changes. Visualized tendons appear intact. IMPRESSION: 1. Wound at the plantar aspect of the forefoot with adjacent subcutaneous edema and ill-defined fluid , likely cellulitis and phlegmon. Limited evaluation for abscess without Postcontrast images. No evid ence for osteomyelitis. 2. Additional findings as described above.
[2024-11-02] VITALS (7 sets, daily range): BP systolic 135–171; BP diastolic 75–96; PULSE 55–78; RESP 17–19; TEMP 97–98.1; O2SAT 96–99
[2024-11-02] MEDS: KETOROLAC TROMETH 30 MG/ML 1ML VIAL IV PRN (00:34)
[2024-11-02 05:40] LABS: Hematocrit 35.6 % (36.0-46.0); Hemoglobin 11.8 g/dL (12.2-16.2); Mean Corpuscular Hemoglobin 25.4 pg (28.0-32.0); Mean Corpuscular Volume 76.9 fL (80.0-100.0); Nucleated Red Blood Cells % 0.0 %
[2024-11-02 05:55] LABS: Alkaline Phosphatase 82 U/L (46-116); Anion Gap 7 (5-15); BUN/Creatinine Ratio 12.7 (10.0-20.0); Blood Urea Nitrogen 9 mg/dL (9-23); Calcium 8.8 mg/dL (8.7-10.4); Carbon Dioxide 27 mmol/L (20-31); Chloride 104 mmol/L (98-107); Glucose 84 mg/dL (74-106); Potassium 4.0 mmol/L (3.5-5.1); Sodium 138 mmol/L (136-145); Total Protein 6.9 g/dL (5.7-8.2)
[2024-11-02 05:56] LABS: Albumin 3.5 g/dL (3.2-4.8)
[2024-11-02 05:57] LABS: Alanine Aminotransferase < 9 U/L (7-40); Bilirubin, Total < 0.2 mg/dL (0.2-1.0)
[2024-11-02] MEDS: NICOTINE 7MG/24HR TOPICAL PATCH TD SCH (09:18)
--- NOTE | 2024-11-02 17:33 | DVHPN2 ---
Subjective Patient's has left foot wound worsening for last week or so, MRI suggestive of foot cellulitis with a possible phlegmon , no evidence of osteomyelitis. Changes from previous H/P or p: No Changes Eyes: No Pain, No Vision change, No Conjunctivae inflammation, No Eyelid inflammation, No Other, No Redness ENT: No Ear pain, No Ear discharge, No Nose pain, No Nose discharge, No Nose congestion, No Mouth pain, No Mouth swelling, No Throat pain, No Throat swelling, No Other Cardiovascular: No Chest Pain, No Palpitations, No Orthopnea, No Paroxysmal Noc. Dyspnea, No Edema, No Lt Headedness, No Other Respiratory: No Cough, No Dry, No Shortness of breath, No SOB with excertion, No Wheezing, No Hemoptysis, No Pleuritic Pain, No Sputum, No Other Gastrointestinal: No Nausea, No Vomiting, No Abdominal Pain, No Diarrhea, No Constipation, No Melena, No Hematochezia, No Other Genitourinary: No Dysuria, No Frequency, No Incontinence, No Hematuria, No Retention, No Other Musculoskeletal: other (Left foot pain); No neck pain, No shoulder pain, No arm pain, No back pain, No hand pain, No leg pain, No foot pain Skin: No Rash, No Lesions, No Jaundice, No Bruising; Other (Left foot open wound) Objective Vitals Vital Signs Date Time Temp Pulse Resp B/P (MAP) Pulse Ox O2 Delivery O2 Flow Rate FiO2 11/02/24 16:46 97.9 78 19 135/82 (99) 97 97.9 11/02/24 07:45 Room Air* 0 21 Intake/Output Intake and Output 11/02/24 07:00 Intake Total 1320 ml Balance 1320 ml Intake Oral 1000 ml IV Total 320 ml # Voids 3 Exam HEENT pupils are reactive Neck is supple CV is S1-S2 regular rate and rhythm Respiratory are clear GI positive bowel sound Extremity no edema [employer] no motor deficit Medications Current Medications Medications Dose Ordered Sig/Wanda Route Start Time Stop Time Status Last Admin Dose Admin Vancomycin HCl 0 ml @ 0 mls/hr UD IV 11/01/24 01:00 Ceftriaxone Sodium 50 ml @ 100 mls/hr DAILY@09 IV 11/02/24 09:00 11/02/24 09:18 100 MLS/HR Acetaminophen 650 mg Q6HP PRN PO 11/01/24 01:00 11/01/24 11:06 650 MG Vancomycin HCl 100 ml @ 100 mls/hr Q12H IV 11/01/24 14:00 11/02/24 14:21 100 MLS/HR Ketorolac Tromethamine 30 mg Q6HPRN PRN IV 11/01/24 11:30 11/06/24 11:29 11/02/24 00:34 30 MG Tramadol HCl 50 mg Q6HP PRN PO 11/01/24 11:30 Nicotine 1 patch DAILY TD 11/02/24 10:00 Laboratory Results Laboratory Tests 11/02/24 04:38 Chemistry Test 11/02/24 04:38 Albumin 3.5 g/dL (3.2-4.8) Calcium Level 8.8 mg/dL (8.7-10.4) Total Protein 6.9 g/dL (5.7-8.2) LFT Test 11/02/24 04:38 Alanine Aminotransferase (ALT) < 9 U/L (7-40) Alkaline Phosphatase 82 U/L (46-116) Aspartate Amino Transferase (AST) 14 U/L (13-40) Total Bilirubin < 0.2 mg/dL (0.2-1.0) L Microbiology Microbiology Date/Time Source Procedure Growth Status 11/01/24 17:00 Foot Left Gram Stain - Final Resulted 11/01/24 17:00 Foot Left Wound Culture - Preliminary Resulted Assessment/Plan Assessment/Plan 44-year-old female initially presented to the hospital with a left foot plantar ulcer nonhealing for a week or so found to have 1. Left foot plantar ulcer with a cellulitis and possibly phlegmon may need surgical intervention 2. Leukocytosis likely reactive 3. Chronic illicit drug use -continue IV antibiotics, follow up Podiatry Services. Plan discussed with: Patient Date of Service: Nov 02, 2024 Billing Provider: BONILLA CAMARGO MD Common Visit Codes: [id number] INP/OBS CARE(MOD) BONILLA CAMARGO MD Nov 02, 2024 17:33
[2024-11-03 00:51] VITALS: BP 155/84; PULSE 70; RESP 18; TEMP 98.1; O2SAT 98
[2024-11-03 05:00] VITALS: BP 143/69; PULSE 71; RESP 17; TEMP 97.7; O2SAT 100
[2024-11-03 08:00] VITALS: PULSE 64; RESP 16; O2SAT 100
--- NOTE | 2024-11-03 08:43 | MEDREC ---
[facility] ASP Intervention Section I [facility] ASP Intervention: Review courses of therapy (MRSA SCREEN POSITIVE CONSIDER ADDING MUPIROCIN 2% OINTMENT 1 APPLICATION IN EACH NOSTRIL BID FOR 5 DAYS ) SHAWNA MATAMOROS PHARMACIST Nov 03, 2024 08:43
[2024-11-03 09:12] VITALS: BP 126/69; PULSE 64; RESP 16; TEMP 97.8; O2SAT 100
[2024-11-03 13:00] VITALS: BP 141/79; PULSE 68; RESP 14; TEMP 97.8; O2SAT 100
[2024-11-03 17:14] VITALS: BP 160/81; PULSE 64; RESP 16; TEMP 98; O2SAT 99
--- NOTE | 2024-11-03 17:17 | DVHPN2 ---
Subjective Patient's has left foot wound worsening for last week or so, MRI suggestive of foot cellulitis with a possible phlegmon , no evidence of osteomyelitis. Changes from previous H/P or p: No Changes Eyes: No Pain, No Vision change, No Conjunctivae inflammation, No Eyelid inflammation, No Other, No Redness ENT: No Ear pain, No Ear discharge, No Nose pain, No Nose discharge, No Nose congestion, No Mouth pain, No Mouth swelling, No Throat pain, No Throat swelling, No Other Cardiovascular: No Chest Pain, No Palpitations, No Orthopnea, No Paroxysmal Noc. Dyspnea, No Edema, No Lt Headedness, No Other Respiratory: No Cough, No Dry, No Shortness of breath, No SOB with excertion, No Wheezing, No Hemoptysis, No Pleuritic Pain, No Sputum, No Other Gastrointestinal: No Nausea, No Vomiting, No Abdominal Pain, No Diarrhea, No Constipation, No Melena, No Hematochezia, No Other Genitourinary: No Dysuria, No Frequency, No Incontinence, No Hematuria, No Retention, No Other Musculoskeletal: other (Left foot pain); No neck pain, No shoulder pain, No arm pain, No back pain, No hand pain, No leg pain, No foot pain Skin: No Rash, No Lesions, No Jaundice, No Bruising; Other (Left foot open wound) Objective Vitals Vital Signs Date Time Temp Pulse Resp B/P (MAP) Pulse Ox O2 Delivery O2 Flow Rate FiO2 11/03/24 17:14 98.0 64 16 160/81 (107) 99 98.0 11/03/24 08:00 Room Air* 0 21 Intake/Output Intake and Output 11/03/24 07:00 Intake Total 1680 ml Balance 1680 ml Intake Oral 1530 ml IV Total 150 ml # Voids 4 # Bowel Movements 1 Exam HEENT pupils are reactive Neck is supple CV is S1-S2 regular rate and rhythm Respiratory are clear GI positive bowel sound Extremity no edema 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 Medications Current Medications Medications Dose Ordered Sig/Wanda Route Start Time Stop Time Status Last Admin Dose Admin Vancomycin HCl 0 ml @ 0 mls/hr UD IV 11/01/24 01:00 Ceftriaxone Sodium 50 ml @ 100 mls/hr DAILY@09 IV 11/02/24 09:00 11/03/24 09:34 100 MLS/HR Acetaminophen 650 mg Q6HP PRN PO 11/01/24 01:00 11/01/24 11:06 650 MG Vancomycin HCl 100 ml @ 100 mls/hr Q12H IV 11/01/24 14:00 11/03/24 14:00 100 MLS/HR Ketorolac Tromethamine 30 mg Q6HPRN PRN IV 11/01/24 11:30 11/06/24 11:29 11/02/24 21:46 30 MG Tramadol HCl 50 mg Q6HP PRN PO 11/01/24 11:30 Nicotine 1 patch DAILY TD 11/02/24 10:00 Laboratory Results Laboratory Tests 11/02/24 04:38 Microbiology Microbiology Date/Time Source Procedure Growth Status 11/01/24 17:00 Foot Left Gram Stain - Final Resulted 11/01/24 17:00 Wound Culture - Preliminary Methicillin Resistant S.aureus Resulted Assessment/Plan Assessment/Plan 44-year-old female initially presented to the hospital with a left foot plantar ulcer nonhealing for a week or so found to have 1. Left foot plantar ulcer with a cellulitis and possibly phlegmon may need surgical intervention 2. Leukocytosis likely reactive 3. Chronic illicit drug use -continue IV antibiotics, follow up Podiatry Services. Plan discussed with: Patient Date of Service: Nov 03, 2024 Billing Provider: BONILLA CAMARGO MD Common Visit Codes: [id number] INP/OBS CARE(MOD) BONILLA CAMARGO MD Nov 03, 2024 17:17
[2024-11-04] VITALS (8 sets, daily range): BP systolic 121–154; BP diastolic 66–96; PULSE 54–62; RESP 15–18; TEMP 98–98.7; O2SAT 96–100
[2024-11-04] MEDS: MUPIROCIN 2% OINT 15gm or 22gm FOR MRSA NARES EACHNOSTRI SCH (10:00)
--- NOTE | 2024-11-04 19:25 | DVHPN2 ---
Assessment/Plan Assessment/Plan 44 F with admitted for cellulitis. 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 On admission she was hypertensive, has leukocytosis, thrombocytosis, normal glucose, elevated ESR. CT no osteo, found plantar ulceration and phlegmon. Started on vanc and ceft. Wound looks infected with necrotic tissue, per patient from insect bite. not taking any meds. used meth and vaping. seen today, MRI no osteo. refused new IV. pending debridement. if continbues to refuse tx will transition to oral and dc Physical exam AOx4 disheveled poor oral hygiene CTAB abdomen soft L plantar ulcer with swelling and erythema, dirty wound Assessment and plan L foot ulcer cellulitis hypertension meth use nicotine use c/w ceft vanc follow culture a1c podiatry consult wound care pain management start oral antihypertensives NRT diet reg dvt ppx scd full code Plan discussed with: Patient My Orders Orders - ANTONI CASSIDY MD Procedure Category Date Status Time Mupirocin 2% Oint PHA 11/04/24 In Process Mrsa Nares (Bactroban 10:00 Date of Service: Nov 04, 2024 Billing Provider: ANTONI CASSIDY MD Common Visit Codes: [id number] INP/OBS CARE(HIGH) ANTONI CASSIDY MD Nov 04, 2024 19:25
[2024-11-05] VITALS (9 sets, daily range): BP systolic 123–154; BP diastolic 61–83; PULSE 54–91; RESP 17–20; TEMP 97.3–98.3; O2SAT 93–99
[2024-11-05 00:10] LABS: INR 1.02 (0.9-1.15); Partial Thromboplastin Time 28.1 SEC (24.5-34.5); Prothrombin Time 10.8 sec (9.3-11.8)
[2024-11-05 05:41] LABS: Hematocrit 36.1 % (36.0-46.0); Hemoglobin 12.1 g/dL (12.2-16.2); Mean Corpuscular Hemoglobin 25.6 pg (28.0-32.0); Mean Corpuscular Volume 76.7 fL (80.0-100.0); Nucleated Red Blood Cells % 0.0 %
[2024-11-05 05:59] LABS: Calcium 8.7 mg/dL (8.7-10.4); Chloride 103 mmol/L (98-107); Potassium 4.2 mmol/L (3.5-5.1); Sodium 139 mmol/L (136-145)
[2024-11-05 06:00] LABS: Anion Gap 9 (5-15); Carbon Dioxide 27 mmol/L (20-31)
[2024-11-05 06:05] LABS: BUN/Creatinine Ratio 20.5 (10.0-20.0); Blood Urea Nitrogen 15 mg/dL (9-23); Glucose 99 mg/dL (74-106)
--- NOTE | 2024-11-05 09:49 | DVHPN2 ---
Assessment/Plan Assessment/Plan 44 F with admitted for cellulitis. 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 On admission she was hypertensive, has leukocytosis, thrombocytosis, normal glucose, elevated ESR. CT no osteo, found plantar ulceration and phlegmon. Started on vanc and ceft. Wound looks infected with necrotic tissue, per patient from insect bite. not taking any meds. used meth and vaping. seen today, debridement today Physical exam AOx4 disheveled poor oral hygiene CTAB abdomen soft L plantar ulcer with swelling and erythema, dirty wound Assessment and plan L foot ulcer cellulitis hypertension meth use nicotine use c/w ceft vanc follow culture a1c podiatry consult wound care pain management start oral antihypertensives NRT diet reg dvt ppx scd full code Plan discussed with: Patient My Orders Orders - ANTONI CASSIDY MD Procedure Category Date Status Time Urinalysis LAB 11/04/24 Logged 23:19 Date of Service: Nov 05, 2024 Billing Provider: ANTONI CASSIDY MD Common Visit Codes: [id number] INP/OBS CARE(HIGH) ANTONI CASSIDY MD Nov 05, 2024 09:49
--- NOTE | 2024-11-05 12:32 | DVHPN2 ---
Subjective The patient is a 44-year-old female with past medical history of PUD, kidney stones, and liver disease who presented to [facility] ED with complaint of left foot nonhealing wound. Patient reports that she noticed a wound on he bottom of her left foot 2 weeks ago, progressively getting worse over time. Patient relays that the wound has gotten bigger, started draining, and is painful rating 10/10 numeric scale. Patient was seen and evaluated in the ED, laboratory data shows WBC 12.4, platelets 681, ESR 48, sodium 137, potassium 4.2, BUN 7, creatinine 0.80, GFR 93, glucose 83, calcium 9.3, blood pressure 148/102, heart rate 86, temperature 98.1 F, O2 saturation 98% on room air. Left foot CT showed no evidence of osteomyelitis. Patient was started on IV antibiotic regimen vancomycin, given IV morphine sulfate, please see medication orders section in the computer. On my assessment, patient denied chest pain, no headache, no dizziness, no shortness of breaths, no nausea, no vomiting, no fever, no chills. Patient was admitted for further evaluation and medical management. Changes from previous H/P or p: No Changes Eyes: No Pain, No Vision change, No Conjunctivae inflammation, No Eyelid inflammation, No Other, No Redness ENT: No Ear pain, No Ear discharge, No Nose pain, No Nose discharge, No Nose congestion, No Mouth pain, No Mouth swelling, No Throat pain, No Throat swelling, No Other Cardiovascular: No Chest Pain, No Palpitations, No Orthopnea, No Paroxysmal Noc. Dyspnea, No Edema, No Lt Headedness, No Other Respiratory: No Cough, No Dry, No Shortness of breath, No SOB with excertion, No Wheezing, No Hemoptysis, No Pleuritic Pain, No Sputum, No Other Gastrointestinal: No Nausea, No Vomiting, No Abdominal Pain, No Diarrhea, No Constipation, No Melena, No Hematochezia, No Other Genitourinary: No Dysuria, No Frequency, No Incontinence, No Hematuria, No Retention, No Other Musculoskeletal: other (Left foot pain); No neck pain, No shoulder pain, No arm pain, No back pain, No hand pain, No leg pain, No foot pain Skin: No Rash, No Lesions, No Jaundice, No Bruising; Other (Left foot open wound) Objective Vitals Vital Signs Date Time Temp Pulse Resp B/P (MAP) Pulse Ox O2 Delivery O2 Flow Rate FiO2 11/05/24 09:04 97.9 56 20 123/61 (81) 98 97.9 11/05/24 08:00 Room Air* 0 21 Intake/Output Intake and Output 11/05/24 07:00 Intake Total 1400 ml Balance 1400 ml Intake Oral 1300 ml IV Total 100 ml # Voids 5 # Bowel Movements 1 Exam Dermatological: Skin is dry with mild erythema and some maceration around the wound site No gross deformities noted Mild non-pitting edema present bilaterally Left plantar forefoot wound with debris, surrounding erythema Vascular: Dorsalis pedis and posterior tibial pulses are 1+ bilaterally Capillary refill is under 2 seconds Skin temperature is warm bilaterally Neurologic: Protective sensation is absent on the plantar forefoot bilaterally Monofilament testing reveals decreased sensation in multiple plantar sites Musculoskeletal: Range of motion at the ankle and MTP joints is within normal limits. Strength is 5/5 in all tested muscle groups. Gait is antalgic due to offloading of the affected limb. Medications Current Medications Medications Dose Ordered Sig/Wanda Route Start Time Stop Time Status Last Admin Dose Admin Vancomycin HCl 0 ml @ 0 mls/hr UD IV 11/01/24 01:00 Ceftriaxone Sodium 50 ml @ 100 mls/hr DAILY@09 IV 11/02/24 09:00 11/05/24 08:53 100 MLS/HR Acetaminophen 650 mg Q6HP PRN PO 11/01/24 01:00 11/01/24 11:06 650 MG Vancomycin HCl 100 ml @ 100 mls/hr Q12H IV 11/01/24 14:00 11/05/24 01:04 100 MLS/HR Ketorolac Tromethamine 30 mg Q6HPRN PRN IV 11/01/24 11:30 11/06/24 11:29 11/02/24 21:46 30 MG Tramadol HCl 50 mg Q6HP PRN PO 11/01/24 11:30 Nicotine 1 patch DAILY TD 11/02/24 10:00 Mupirocin 1 applic BID EACHNOSTRI 11/04/24 10:00 11/09/24 09:59 11/05/24 10:00 1 APPLIC Laboratory Results Laboratory Tests 11/05/24 04:54 Chemistry Test 11/05/24 04:54 Calcium Level 8.7 mg/dL (8.7-10.4) Coagulation Test 11/04/24 23:40 Prothrombin Time 10.8 sec (9.3-11.8) Prothrombin Time INR 1.02 (0.9-1.15) Activated Partial Thromboplast Time 28.1 SEC (24.5-34.5) Microbiology Microbiology Date/Time Source Procedure Growth Status 11/01/24 17:00 Foot Left Gram Stain - Final Complete 11/01/24 17:00 Wound Culture - Final Methicillin Resistant S.aureus Enterobacter cloacae Streptococcus Group B Complete Assessment/Plan Assessment/Plan ASSESSMENT: Patient is a 44 year old seen on the floor for a worsening ulcer PLAN: - The patients chart was reviewed, clinical findings were discussed with the patient, the etiologies of the conditions were discussed in detail, and a treatment plan was agreed to at this time, with both oral and written instructions provided. - reviewed advanced imaging - discussed plan is to perform an incision and drainage - patient has been NPO since midnight - take her to the OR today - we will get cultures in the OR - can weightbear as tolerated in postoperative shoe - can discharged home on p.o. antibiotics after procedure All questions were answered and concerns addressed to the patient's satisfaction. The patient was given the phone number to the clinic and was told how to make contact with the clinic should any concerns or questions arise. Patient understands that if any questions or concerns arise prior to the next appointment, we should be contacted immediately. FOLLOW-UP: Continue to follow while inpatient Plan discussed with: Patient My Orders Orders - TRISHA JONAS DPM Procedure Category Date Status Time Apply/Change Dressing BEE 11/04/24 In Process 12:40 Problem List: (1) Leukocytosis (2) Cellulitis of left foot (3) Thrombocytosis (4) Leukocytosis, unspecified (5) Open wound of left foot (6) Fatty liver (7) Urinary tract infection (8) Kidney stone (9) Hydrosalpinx (10) Anxiety (11) Gastroenteritis (12) Head ache (13) Acute pharyngitis (14) Abdominal pain (15) Cellulitis and abscess of foot (16) Abdominal pain of unknown etiology (17) Hemorrhagic ovarian cyst (18) Hemorrhagic ovarian cyst (19) Hemorrhagic ovarian cyst (20) Hypertensive urgency (21) Bullous lesion (22) Non compliance w medication regimen (23) History of uncontrolled hypertension (24) Asymptomatic hypertension (25) Upper respiratory infection Visit Coding Podiatry Date of Service if different f: Nov 05, 2024 Billing Provider: TRISHA JONAS DPM Podiatry Common Visit Codes: [id number] INP/OBS CARE(HIGH) TRISHA JONAS DPM Nov 05, 2024 12:32
[2024-11-05] MEDS ORDERED: fentaNYL CITRATE 100 MCG/2 ML VL ONE (12:40)
[2024-11-05] MEDS: BUPIVACAINE 0.5% P/F INJ 10 ML VIAL ONE (13:09)
--- NOTE | 2024-11-05 13:21 | DVHOP2 ---
Operative Report - 2 Report Details Date: 11/05/24 Preop Diagnosis: 1. Left foot abscess 2. Left foot chronic ulcer 3. Left foot cellulitis Postop Diagnosis: Same as preop Surgeon: Trisha Jonas MD Anesthesiologist: See anesthesia Anesthesia: General Consent: The patient was informed of the risks and benefits of the procedure. These include but are not limited to complications of anesthesia, postoperative infection, incomplete relief of symptoms, recurrence of symptoms, damage to blood vessels, nerves and tendons, deep venous thrombosis, pulmonary embolism and possible need for repeat surgery in the future. Complications: None Estimated Blood Loss: Minimal Fluids: See anesthesia Findings: Consistent with diagnosis Indications for Surgery: Worsening foot wound Name of Procedure Performed 1. Left foot I&D (07045) Procedure Details Procedure Details: PRE-PROCEDURE INFORMATION: In the pre-op holding area, the extremity to be operated on was clearly marked and the patient verified correct laterality of the marking. The patient was transferred to the OR table and placed in a supine position. A timeout was performed in which identification of the correct patient, procedure, location, and materials was done. The the foot and leg were prepped and draped in normal sterile fashion. DESCRIPTION OF PROCEDURE: Attention was directed to the left where area of fluctuance was noted. An incision was made over this area and was deepened through blunt dissection. The incision was deepened to the level of abscess and bone. Care was taken to the dissection to avoid any neurovascular and tendinous structures. The incision was deepened to the bone, and the abscess appeared to be purulent fluid consistent with pus. The cortices of the bone was then removed with rongeur an all necrotic tissue. After the abscess was drained, the area was irrigated with 3 L normal saline using cysto tubing. Deep cultures were then obtained from the wound. The area was then inspected and any areas of tracking, especially along the tendons were also drained. The wound was packed with Betadine-soaked gauze and we will need to be closed at a later date. POSTOPERATIVE INFORMATION: The patient tolerated the above noted procedure and anesthesia well and was transferred to the PACU with vital signs stable, and vascular status intact with capillary refill intact to all digits. Due to the amount of purulent drainage, recommend that we take her back on for repeat incision and drainage with possible closure. Deep cultures were taken Condition Good Disposition Still a Patient Visit Coding Podiatry Date of Service if different f: Nov 05, 2024 Billing Provider: TRISHA JONAS DPM Podiatry Common Visit Codes: PROCEDURE ONLY [id number] FOOT BONE LESION: 98588-HC FOOT BONE LESN (LEFT) TRISHA JONAS DPM Nov 05, 2024 13:21
[2024-11-05] MEDS ORDERED: hydrALAZINE HCL 20 MG/ML VL IV PRN (14:00)
[2024-11-05] MEDS ORDERED: ONDANSETRON HCL 4 MG/2 ML VIAL IV PRN (14:00)
[2024-11-05] MEDS: ACETAMINOPHEN IV 1000 MG/100ML (10MG/ML) IV PRN (14:00)
[2024-11-05] MEDS: ACETAMINOPHEN IV 100 ML IV ONE (14:02)
[2024-11-05] MEDS: HYDROmorphone HCL 2 MG/ML VL/or syr ONE (14:29)
[2024-11-05] MEDS: HYDROmorphone HCL 2 MG/ML VL/or syr IV PRN (14:29)
[2024-11-06] VITALS (7 sets, daily range): BP systolic 112–156; BP diastolic 62–100; PULSE 60–73; RESP 16–18; TEMP 96.7–97.9; O2SAT 97–100
[2024-11-06 06:35] LABS: Mean Corpuscular Hemoglobin 25.5 pg (28.0-32.0); Mean Corpuscular Volume 76.9 fL (80.0-100.0); Nucleated Red Blood Cells % 0.0 %
[2024-11-06 06:38] LABS: Hematocrit 34.1 % (36.0-46.0); Hemoglobin 11.3 g/dL (12.2-16.2)
[2024-11-06] MEDS ORDERED: LINE1TAB6 PO (09:05)
[2024-11-06] MEDS ORDERED: IBU600T PO (09:05)
[2024-11-06] MEDS ORDERED: LEVO500T91 PO (09:05)
[2024-11-06] MEDS: levoFLOXacin 500 MG TAB PO SCH (13:10)
[2024-11-06] MEDS: LINEZOLID 600MG TABLET PO SCH (13:10)
[2024-11-07] VITALS (7 sets, daily range): BP systolic 133–182; BP diastolic 58–102; PULSE 49–105; RESP 17–24; TEMP 97.5–98.1; O2SAT 96–100
--- NOTE | 2024-11-07 09:00 | DVHPN2 ---
Assessment/Plan Assessment/Plan 44 F with admitted for cellulitis. 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 On admission she was hypertensive, has leukocytosis, thrombocytosis, normal glucose, elevated ESR. CT no osteo, found plantar ulceration and phlegmon. Started on vanc and ceft. Wound looks infected with necrotic tissue, per patient from insect bite. not taking any meds. used meth and vaping. seen today, podiatry repeat I&D planned for tomorrow. npo midnight. pt with no access and refused new access, switching to po abx Physical exam AOx4 disheveled poor oral hygiene CTAB abdomen soft L plantar ulcer with swelling and erythema, dirty wound Assessment and plan L foot ulcer cellulitis hypertension meth use nicotine use c/w ceft vanc to levaquin zyfox follow culture a1c podiatry consult wound care pain management start oral antihypertensives NRT diet reg dvt ppx scd full code Plan discussed with: Patient My Orders Orders - ANTONI CASSIDY MD Procedure Category Date Status Time * Benefits Counselor CONS 11/06/24 Transmitted Consult Linezolid Tablet PHA 11/06/24 In Process (Zyvox Tablet) 10:00 Levofloxacin Tablet PHA 11/06/24 In Process (Levaquin Tablet) 10:00 Schedule For Dc BEE 11/06/24 In Process Clinic F/U 09:08 Date of Service: Nov 06, 2024 Billing Provider: ANTONI CASSIDY MD Common Visit Codes: [id number] INP/OBS CARE(HIGH) ANTONI CASSIDY MD Nov 07, 2024 09:00
--- NOTE | 2024-11-07 09:08 | DVHPN2 ---
Assessment/Plan Assessment/Plan 44 F with admitted for cellulitis. 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 On admission she was hypertensive, has leukocytosis, thrombocytosis, normal glucose, elevated ESR. CT no osteo, found plantar ulceration and phlegmon. Started on vanc and ceft. Wound looks infected with necrotic tissue, per patient from insect bite. not taking any meds. used meth and vaping. seen today, plan for I&D today Physical exam AOx4 disheveled poor oral hygiene CTAB abdomen soft L plantar ulcer with swelling and erythema, dirty wound Assessment and plan L foot ulcer cellulitis hypertension meth use nicotine use c/w ceft vanc to levaquin zyfox follow culture a1c podiatry consult wound care pain management start oral antihypertensives NRT diet reg dvt ppx scd full code Plan discussed with: Patient My Orders Orders - ANTONI CASSIDY MD Procedure Category Date Status Time * Water Server CONS 11/06/24 Transmitted Consult Linezolid Tablet PHA 11/06/24 In Process (Zyvox Tablet) 10:00 Levofloxacin Tablet PHA 11/06/24 In Process (Levaquin Tablet) 10:00 Schedule For Dc BEE 11/06/24 In Process Clinic F/U 09:08 Date of Service: Nov 07, 2024 Billing Provider: ANTONI CASSIDY MD Common Visit Codes: [id number] INP/OBS CARE(HIGH) ANTONI CASSIDY MD Nov 07, 2024 09:08
--- NOTE | 2024-11-07 12:16 | DVHPN2 ---
Subjective The patient is a 44-year-old female with past medical history of PUD, kidney stones, and liver disease who presented to [facility] ED with complaint of left foot nonhealing wound. Patient reports that she noticed a wound on he bottom of her left foot 2 weeks ago, progressively getting worse over time. Patient relays that the wound has gotten bigger, started draining, and is painful rating 10/10 numeric scale. Patient was seen and evaluated in the ED, laboratory data shows WBC 12.4, platelets 681, ESR 48, sodium 137, potassium 4.2, BUN 7, creatinine 0.80, GFR 93, glucose 83, calcium 9.3, blood pressure 148/102, heart rate 86, temperature 98.1 F, O2 saturation 98% on room air. Left foot CT showed no evidence of osteomyelitis. Patient was started on IV antibiotic regimen vancomycin, given IV morphine sulfate, please see medication orders section in the computer. On my assessment, patient denied chest pain, no headache, no dizziness, no shortness of breaths, no nausea, no vomiting, no fever, no chills. Patient was admitted for further evaluation and medical management. Changes from previous H/P or p: No Changes Eyes: No Pain, No Vision change, No Conjunctivae inflammation, No Eyelid inflammation, No Other, No Redness ENT: No Ear pain, No Ear discharge, No Nose pain, No Nose discharge, No Nose congestion, No Mouth pain, No Mouth swelling, No Throat pain, No Throat swelling, No Other Cardiovascular: No Chest Pain, No Palpitations, No Orthopnea, No Paroxysmal Noc. Dyspnea, No Edema, No Lt Headedness, No Other Respiratory: No Cough, No Dry, No Shortness of breath, No SOB with excertion, No Wheezing, No Hemoptysis, No Pleuritic Pain, No Sputum, No Other Gastrointestinal: No Nausea, No Vomiting, No Abdominal Pain, No Diarrhea, No Constipation, No Melena, No Hematochezia, No Other Genitourinary: No Dysuria, No Frequency, No Incontinence, No Hematuria, No Retention, No Other Musculoskeletal: other (Left foot pain); No neck pain, No shoulder pain, No arm pain, No back pain, No hand pain, No leg pain, No foot pain Skin: No Rash, No Lesions, No Jaundice, No Bruising; Other (Left foot open wound) Objective Vitals Vital Signs Date Time Temp Pulse Resp B/P (MAP) Pulse Ox O2 Delivery O2 Flow Rate FiO2 11/07/24 09:00 97.6 64 19 133/75 (94) 99 97.6 11/06/24 20:00 Room Air* 0 21 Intake/Output Intake and Output 11/07/24 07:00 Intake Total 1600 ml Output Total 600 ml Balance 1000 ml Intake Oral 1600 ml Output Urine Total 600 ml # Voids 3 Exam Dermatological: Skin is dry with mild erythema and some maceration around the wound site No gross deformities noted Mild non-pitting edema present bilaterally Left plantar forefoot wound with debris, surrounding erythema Vascular: Dorsalis pedis and posterior tibial pulses are 1+ bilaterally Capillary refill is under 2 seconds Skin temperature is warm bilaterally Neurologic: Protective sensation is absent on the plantar forefoot bilaterally Monofilament testing reveals decreased sensation in multiple plantar sites Musculoskeletal: Range of motion at the ankle and MTP joints is within normal limits. Strength is 5/5 in all tested muscle groups. Gait is antalgic due to offloading of the affected limb. Medications Current Medications Medications Dose Ordered Sig/Wanda Route Start Time Stop Time Status Last Admin Dose Admin Acetaminophen 650 mg Q6HP PRN PO 11/01/24 01:00 11/01/24 11:06 650 MG Tramadol HCl 50 mg Q6HP PRN PO 11/01/24 11:30 Nicotine 1 patch DAILY TD 11/02/24 10:00 Mupirocin 1 applic BID EACHNOSTRI 11/04/24 10:00 11/09/24 09:59 11/07/24 10:15 1 APPLIC Linezolid 600 mg BID PO 11/06/24 10:00 11/07/24 10:14 600 MG Levofloxacin 500 mg DAILY PO 11/06/24 10:00 11/07/24 10:14 500 MG Laboratory Results Laboratory Tests 11/05/24 04:54 11/06/24 05:07 Microbiology Microbiology Date/Time Source Procedure Growth Status 11/05/24 13:20 Foot Left Gram Stain - Final Resulted 11/05/24 13:20 Foot Left Anaerobic Culture - Preliminary Resulted 11/05/24 13:20 Aerobic Culture - Final Methicillin Resistant S.aureus Resulted Assessment/Plan Assessment/Plan ASSESSMENT: Patient is a 44 year old seen on the floor for a worsening ulcer PLAN: - The patients chart was reviewed, clinical findings were discussed with the patient, the etiologies of the conditions were discussed in detail, and a treatment plan was agreed to at this time, with both oral and written instructions provided. - reviewed advanced imaging - discussed plan is to perform an incision and drainage and closure - patient has been NPO since midnight - take her to the OR today - we will get cultures in the OR - can weightbear as tolerated in postoperative shoe All questions were answered and concerns addressed to the patient's satisfaction. The patient was given the phone number to the clinic and was told how to make contact with the clinic should any concerns or questions arise. Patient understands that if any questions or concerns arise prior to the next appointment, we should be contacted immediately. FOLLOW-UP: Continue to follow while inpatient Plan discussed with: Patient Problem List: (1) Leukocytosis (2) Cellulitis of left foot (3) Thrombocytosis (4) Leukocytosis, unspecified (5) Open wound of left foot (6) Fatty liver (7) Urinary tract infection (8) Kidney stone (9) Hydrosalpinx (10) Anxiety (11) Gastroenteritis (12) Head ache (13) Acute pharyngitis (14) Abdominal pain (15) Cellulitis and abscess of foot (16) Abdominal pain of unknown etiology (17) Hemorrhagic ovarian cyst (18) Hemorrhagic ovarian cyst (19) Hemorrhagic ovarian cyst (20) Hypertensive urgency (21) Bullous lesion (22) Non compliance w medication regimen (23) History of uncontrolled hypertension (24) Asymptomatic hypertension (25) Upper respiratory infection Visit Coding Podiatry Date of Service if different f: Nov 07, 2024 Billing Provider: TRISHA JONAS DPM Podiatry Common Visit Codes: [id number] INP/OBS CARE(HIGH) TRISHA JONAS DPM Nov 07, 2024 12:16
[2024-11-07] MEDS ORDERED: MIDAZOLAM HCL 2MG/2ML 2ml VIAL (1mg/ml) ONE (12:50)
[2024-11-07] MEDS ORDERED: ONDANSETRON HCL 4 MG/2 ML VIAL ONE (12:50)
[2024-11-07] MEDS ORDERED: PROPOFOL 10 MG/ML 20 ML IV ONE (12:50)
[2024-11-07] MEDS ORDERED: GLYCOPYRROLATE 0.2 MG/ML 1ML VIAL ONE (12:50)
[2024-11-07] MEDS: LIDOCAINE 1% HCL (LOCAL ANESTH.) INJ 20ML MDV ONE (13:39)
--- NOTE | 2024-11-07 13:45 | DVHOP2 ---
Operative Report - 2 Report Details Date: 11/07/24 Preop Diagnosis: 1. Left foot abscess 2. Left foot chronic ulcer 3. Left foot cellulitis Postop Diagnosis: Same as preop Surgeon: Trisha Jonas MD Anesthesiologist: See anesthesia Anesthesia: General Consent: The patient was informed of the risks and benefits of the procedure. These include but are not limited to complications of anesthesia, postoperative infection, incomplete relief of symptoms, recurrence of symptoms, damage to blood vessels, nerves and tendons, deep venous thrombosis, pulmonary embolism and possible need for repeat surgery in the future. Complications: None Estimated Blood Loss: Minimal Fluids: See anesthesia Findings: Consistent with diagnosis Indications for Surgery: Worsening foot wound Name of Procedure Performed 1. Left foot I&D (32156) 2. Left foot diabetic flap (77358) 3. Left foot delayed closure (22579) Procedure Details Procedure Details: PRE-PROCEDURE INFORMATION: In the pre-op holding area, the extremity to be operated on was clearly marked and the patient verified correct laterality of the marking. The patient was transferred to the OR table and placed in a supine position. A timeout was performed in which identification of the correct patient, procedure, location, and materials was done. The the foot and leg were prepped and draped in normal sterile fashion. DESCRIPTION OF PROCEDURE: Attention was directed to the left foot where previous incision was made. An incision was made over this area and was deepened through blunt dissection. The incision was deepened to the level of abscess and bone. Care was taken to the dissection to avoid any neurovascular and tendinous structures. The incision was deepened to the bone, and the abscess appeared to be purulent fluid consistent with pus. The cortices of the bone was then removed with rongeur an all necrotic tissue. After the abscess was drained, the area was irrigated with 3 L normal saline using cysto tubing. Due to the soft tissue deficit, rotational advancement flap was designed medially to laterally and elevated preserving vascularity. A delayed closure was then performed using 2-0 nylon after was deemed appropriate with no longer concern for infection. POSTOPERATIVE INFORMATION: The patient tolerated the above noted procedure and anesthesia well and was transferred to the PACU with vital signs stable, and vascular status intact with capillary refill intact to all digits. Patient can be discharged home weightbearing as tolerated in a postop shoe. Recommend 2 weeks of oral antibiotics. Patient can follow up with me in a week or 2 Condition Good Disposition Home Visit Coding Podiatry Date of Service if different f: Nov 07, 2024 Billing Provider: TRISHA JONAS DPM Podiatry Common Visit Codes: PROCEDURE ONLY TRISHA JONAS DPM Nov 07, 2024 13:45
[2024-11-07] MEDS: ACETAMINOPHEN IV 1000 MG/100ML (10MG/ML) IV ONE (14:02)
[2024-11-07] MEDS: HYDROmorphone HCL 2 MG/ML VL/or syr IV PRN (14:03)
[2024-11-08 01:00] VITALS: BP 128/72; PULSE 54; RESP 17; TEMP 97.5; O2SAT 97
[2024-11-08 05:00] VITALS: BP 149/75; PULSE 66; RESP 17; TEMP 97.5; O2SAT 98
[2024-11-08 09:00] VITALS: BP 126/66; PULSE 61; RESP 19; TEMP 97.3; O2SAT 100
--- NOTE | 2024-11-08 10:12 | DVHDS2 ---
Discharge Summary Date of Admission Nov 01, 2024 at 00:53 Date of Discharge: Nov 06, 2024 Labs/Diagnostic Data: Laboratory Results Test 11/06/24 05:07 11/05/24 04:54 11/04/24 23:40 11/02/24 13:02 White Blood Count 12.9 10^3/uL (4.4-10.8) Red Blood Count 4.44 10^6/uL (4.0-5.20) Hemoglobin 11.3 g/dL (12.2-16.2) Hematocrit 34.1 % (36.0-46.0) Mean Corpuscular Volume 76.9 fL (80.0-100.0) Mean Corpuscular Hemoglobin 25.5 pg (28.0-32.0) Mean Corpuscular Hemoglobin Concent 33.2 g/dL (32.0-36.0) Red Cell Distribution Width 16.6 % (11.8-14.3) Platelet Count 491 10^3/uL (140-450) Mean Platelet Volume 7.4 fL (6.9-10.8) Neutrophils (%) (Auto) 70.4 % (37.0-80.0) Lymphocytes (%) (Auto) 18.8 % (10.0-50.0) Monocytes (%) (Auto) 7.1 % (0.0-12.0) Eosinophils (%) (Auto) 2.6 % (0.0-7.0) Basophils (%) (Auto) 1.1 % (0.0-2.0) Neutrophils # (Auto) 9.1 10 ^3/uL (1.6-8.6) Lymphocytes # (Auto) 2.4 10 ^3/uL (0.4-5.4) Monocytes # (Auto) 0.9 10 ^3/uL (0-1.3) Eosinophils # (Auto) 0.3 10 ^3/uL (0-0.8) Basophils # (Auto) 0.1 10 ^3/uL (0-0.2) Nucleated Red Blood Cells 0.0 % Creatinine 0.67 mg/dL (0.550-1.02) Glomerular Filtration Rate Calc 110 mL/min (>90) Sodium Level 139 mmol/L (136-145) Potassium Level 4.2 mmol/L (3.5-5.1) Chloride Level 103 mmol/L (98-107) Carbon Dioxide Level 27 mmol/L (20-31) Anion Gap 9 (5-15) Blood Urea Nitrogen 15 mg/dL (9-23) BUN/Creatinine Ratio 20.5 (10.0-20.0) Serum Glucose 99 mg/dL (74-106) Calcium Level 8.7 mg/dL (8.7-10.4) Prothrombin Time 10.8 sec (9.3-11.8) Prothrombin Time INR 1.02 (0.9-1.15) Activated Partial Thromboplast Time 28.1 SEC (24.5-34.5) Beta HCG, Quantitative 0.4 mIU/mL (1.5-4.2) Vancomycin Level Trough 10.5 ug/mL (5-10) Test 11/02/24 04:38 11/01/24 03:28 10/31/24 15:29 Total Bilirubin < 0.2 mg/dL (0.2-1.0) Aspartate Amino Transferase (AST) 14 U/L (13-40) Alanine Aminotransferase (ALT) < 9 U/L (7-40) Alkaline Phosphatase 82 U/L (46-116) Total Protein 6.9 g/dL (5.7-8.2) Albumin 3.5 g/dL (3.2-4.8) Hemoglobin A1c 5.4 % A1C (<5.7) Erythrocyte Sedimentation Rate 48 mm/hr (0-20) Other Laboratory Tests 11/06/24 05:07 11/05/24 04:54 Brief Hx & Hospital Course: 44 F with admitted for cellulitis. Pt complained of L foot wound since 2 weeks [employer] worsening over time. On admission she was hypertensive, has leukocytosis, thrombocytosis, normal glucose, elevated ESR. CT no osteo, found plantar ulceration and phlegmon. Started on vanc and ceft. Wound looks infected with necrotic tissue, per patient from insect bite. not taking any meds. used meth and vaping. had 2 i&D done, cleared by podiatry. not diabetic. [place] to dc with levo and zyvox. 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 s/p I&D x2 hypertension meth use nicotine use Discharge Disposition: Home Discharge Instruct/Medications Diet: Regular Activity: No Restrictions, As Tolerated Medications: linezolid levoflox Scheduled Levofloxacin Hemihydrate (Levofloxacin), 1 TAB PO DAILY Linezolid (Zyvox), 600 MG PO BID Promethazine Hcl (Promethazine Hcl), 12.5 TAB PO Q8HR, (Reported) Scheduled PRN Ibuprofen Micronized (Motrin Tablet), 600 MG PO TID PRN Miscellaneous Medications Hydrocodone-Acetaminophen (Vicodin), (Reported) Discharge Statement: "Patient was advised to return to the ER or call 911 if any headaches, dizziness, shortness of breath, chest pain, abdominal pain, bleeding, fevers, or worsening of medical condition. Patient was counseled about treatment plan, medications, possible side effects, patientverbalized understanding. All questions were answered to the best of my ability. This discharge took greater then 30 minutes in planning, reviewing documentation, counseling the patient, and discussing with other team members." ASSESSMENT ASSESSMENT Assessment Same as preop Date of Service: Nov 08, 2024 Billing Provider: ANTONI CASSIDY MD Common Visit Codes: [id number] DISCH DAY >30min ANTONI CASSIDY MD Nov 08, 2024 10:12
[2024-11-08] MEDS ORDERED: KETAMINE 50mg/ML 1ml syringe IV ONE (12:59)
[2024-11-08 13:00] VITALS: BP 142/83; PULSE 58; RESP 17; TEMP 98.2; O2SAT 98
== END 2024-11-08 12:00 | disposition home or self-care (01) | DRG 380 ==
LOC: ER 14:21 → OVERFLOW 11-01 00:53 → WEST WING 11-01 17:36 → CENTRAL 11-02 16:32
PROVIDERS: ADMIT Student in an Organized Health Care Education/Training Program; ATTEND Student in an Organized Health Care Education/Training Program
PROC: 0Y9N0ZZ Drainage of Left Foot, Open Approach (ICD-10-PCS; principal; 2024-11-05 12:56)
PROC: 0Y9N0ZZ Drainage of Left Foot, Open Approach (ICD-10-PCS; 2024-11-07)
DX: E11.621 Type 2 diabetes mellitus with foot ulcer (principal); L97.528 Non-pressure chronic ulcer of other part of left foot with other specified severity; L03.116 Cellulitis of left lower limb; D72.829 Elevated white blood cell count, unspecified; D75.839 Thrombocytosis, unspecified; R65.10 Systemic inflammatory response syndrome (SIRS) of non-infectious origin without acute organ dysfunction; F15.90 Other stimulant use, unspecified, uncomplicated; I10 Essential (primary) hypertension; K76.0 Fatty (change of) liver, not elsewhere classified; F17.200 Nicotine dependence, unspecified, uncomplicated; F41.9 Anxiety disorder, unspecified; L02.612 Cutaneous abscess of left foot; Z91.148 Patient's other noncompliance with medication regimen for other reason; Z87.442 Personal history of urinary calculi; Z87.11 Personal history of peptic ulcer disease
CPT/HCPCS: 36415; 73700; 73718; 80048; 80053; 80202; 82565; 83036; 84702; 85025; 85610; 85652; 85730; 86850; 86900; 86901; 87070; 87075; 87077; 87081; 87186; 87205; G0378; J0131; J1885; J2003; J2250; J2405; J2704; J3490